=== PATIENT | female | born 1960 | race Two or more races ===

== ENCOUNTER 2018-03-21 08:00 | Inpatient (IN) | payer MEDICARE, OTHER ==
[2018-03-21] MEDS ORDERED: BUPIVACAINE HCL/PF 0.25% (2.5MG/ML) 10 ML VIAL ONE (10:52)
[2018-03-21] MEDS ORDERED: MIDAZOLAM HCL 2 MG/2 ML SINGLE DOSE VIAL ONE (11:00)
[2018-03-21] MEDS ORDERED: DEXAMETHASONE SOD PHOSPHATE 4 MG/1 ML VIAL ONE ×2 (11:23→12:53)
[2018-03-21] MEDS ORDERED: LIDOCAINE HCL/PF 2% SDV 5ML VIAL ONE (11:23)
[2018-03-21] MEDS ORDERED: PROPOFOL 20 ML ONE (11:24)
[2018-03-21] MEDS ORDERED: ROCURONIUM BROMIDE 50 MG/5 ML VIAL ONE (11:24)
[2018-03-21] MEDS ORDERED: ceFAZolin SODIUM 1 GM VIAL ONE (11:33)
[2018-03-21] MEDS ORDERED: ceFAZolin SODIUM 1 GM VIAL IVPB ONE (11:34)
[2018-03-21] MEDS ORDERED: GLYCOPYRROLATE 0.2 MG/1 ML VIAL ONE (13:45)
[2018-03-21] MEDS ORDERED: NEOSTIGMINE METHYLSULFATE 0.5 MG/ML - 10 ML MDV ONE (13:45)
[2018-03-21] MEDS ORDERED: BUPIVACAINE HCL/PF 0.25% (2.5MG/ML) 10 ML VIAL IJ ONE (13:45)
[2018-03-21] MEDS ORDERED: ACETAMINOPHEN INJECTION 100 ML IVPB ONE (13:56)
[2018-03-21] MEDS ORDERED: FAMOTIDINE 20 MG/50 ML IVPB 20 MG/50 ML MG IVPB ONE (13:57)
[2018-03-21] MEDS ORDERED: METOCLOPRAMIDE HCL INJECTION 10 MG/2 ML VIAL ONE (13:57)
[2018-03-21] MEDS ORDERED: ONDANSETRON 4 MG/2 ML VIAL ONE (13:57)
[2018-03-21] MEDS ORDERED: MIDAZOLAM HCL 2 MG/2 ML SINGLE DOSE VIAL IVPUSH ONE (14:14)
--- NOTE | 2018-03-21 14:34 | OP ---
Operative Note - Note: Operative Date: 03/21/18 Pre-Operative Diagnosis: Morbid obesity due to excess calories Operation: Laproscopic sleeve gastrectomy, liver biopsy, and EGD Post-Operative Diagnosis: Same as Pre-op Surgeon: Chucho Rosario School Based Therapist: Sandoval Valles Anesthesiologist/VAULT KEEPER: Dewayne Boateng Anesthesia: General Estimated Blood Loss (mls): 150 Operative Report Dictated: Yes
[2018-03-21] MEDS: METOCLOPRAMIDE HCL INJECTION 10 MG/2 ML VIAL IVPUSH SCH ×2 (14:35→21:00)
[2018-03-21] MEDS: ACETAMINOPHEN 1000 MG/100 ML VIAL (NON FORMULARY) IVPB SCH ×2 (14:36→21:00)
[2018-03-21] MEDS: ONDANSETRON 4 MG/2 ML VIAL IVPUSH SCH ×3 (14:36→22:45)
[2018-03-21] MEDS ORDERED: FAMOTIDINE 20 MG PREMIXED IVPB IVPB ONE (14:37)
--- NOTE | 2018-03-21 14:38 | SURG ---
[facility] Publisher Note Magazine Publisher: Sandoval Valles PA-C Date of Service: 03/21/18 Diagnosis: morbid obesity due to excess calories Procedure: Laproscopic sleeve gastrectomy, liver biopsy, and EGD I was present for the entirety of the operative procedure. For further detail, please refer to operative report.
--- NOTE | 2018-03-21 14:38 | HP ---
Admitting History and Physical - Admission Chief Complaint: MORBID OBESITY History Source: Patient Limitations to Obtaining History: No Limitations - Past Medical History Pulmonary: Yes: Sleep Apnea ...LMP: 03/20/16 ...: No - Past Surgical History Additional Past Surgical History: lap bans Lap band removal - Smoking History Smoking history: Former smoker Have you smoked in the past 12 months: Yes If you are a former smoker, when did you quit?: 2011 - Alcohol/Substance Use Hx Alcohol Use: Yes (SOCIAL) Home Medications - Allergies Allergies/Adverse Reactions: Allergies Allergy/AdvReac Type Severity Reaction Status Date / Time No Known Drug Allergies Allergy Verified 12/11/14 19:34 - Home Medications Home Medications: Ambulatory Orders Loratadine [Claritin] 10 mg PO DAILY 03/20/18 Trazodone HCl 150 mg PO HS 03/20/18 Family Disease History - Family Disease History Family History: Unremarkable Review of Systems - Review of Systems Constitutional: denies: Chills, Fever HENT: reports: No Symptoms Neck: reports: No Symptoms Cardiovascular: reports: No Symptoms Respiratory: reports: No Symptoms Gastrointestinal: denies: Abdominal Pain Neurological: reports: No Symptoms Pain Intensity: 0 Physical Examination Vital Signs: Vital Signs Temperature 98.0 F 03/21/18 09:13 Pulse Rate 60 03/21/18 09:13 Respiratory Rate 16 03/21/18 09:13 Blood Pressure 103/60 03/21/18 09:13 O2 Sat by Pulse Oximetry (%) 94 L 03/21/18 09:02 Constitutional: Yes: No Distress HENT: Yes: WNL Neck: Yes: WNL Cardiovascular: Yes: WNL Respiratory: Yes: WNL Gastrointestinal: Yes: Soft, Abdomen, Obese Neurological: Yes: Alert, Oriented Problem List - Problems (1) BMI 39.0-39.9,adult Code(s): Z68.39 - BODY MASS INDEX (BMI) 39.0-39.9, ADULT (2) Morbid obesity due to excess calories Code(s): E66.01 - MORBID (SEVERE) OBESITY DUE TO EXCESS CALORIES (3) Hepatomegaly Code(s): R16.0 - HEPATOMEGALY, NOT ELSEWHERE CLASSIFIED (4) Sleep apnea Code(s): G47.30 - SLEEP APNEA, UNSPECIFIED Qualifiers: Sleep apnea type: unspecified type Qualified Code(s): G47.30 - Sleep apnea , unspecified Assessment/Plan Laparoscopic possible open vertical sleeve gastrectomy possible liver biopsy, EGD
[2018-03-21] MEDS ORDERED: ACETAMINOPHEN 1000 MG/100 ML VIAL (NON FORMULARY) IVPB SCH (14:45)
[2018-03-21] MEDS ORDERED: ONDANSETRON 4 MG/2 ML VIAL IVPUSH SCH (14:45)
[2018-03-21] MEDS ORDERED: METOCLOPRAMIDE HCL INJECTION 10 MG/2 ML VIAL IVPUSH SCH (14:45)
[2018-03-21] MEDS ORDERED: SODIUM CHLORIDE 1,000 ML IV SCH (14:45)
[2018-03-21] MEDS ORDERED: LABETALOL HCL 5 MG/1 ML (100MG/20 ML VIAL) ONE (14:55)
[2018-03-21] MEDS ORDERED: LABETALOL HCL 5 MG/1 ML (100MG/20 ML VIAL) IVPUSH ONE ×2 (14:55→17:30)
[2018-03-21 15:10] LABS: HEMATOCRIT 41.9 % (32.4-45.2); HEMOGLOBIN 13.6 GM/dL (10.7-15.3); MCH 29.5 pg (25.7-33.7); MCHC 32.5 g/dl (32.0-36.0); MEAN CELL VOLUME 90.6 fl (80-96); MEAN PLT VOLUME 8.6 fl (7.5-11.1); PLATELET COUNT 303 K/MM3 (134-434); RBC 4.63 M/mm3 (3.60-5.2); RDW 14.2 % (11.6-15.6); WHITE BLOOD COUNT 12.1 K/mm3 (4.0-10.0)
[2018-03-21] MEDS: SODIUM CHLORIDE 1,000 ML IV SCH (15:15)
--- NOTE | 2018-03-21 15:31 | SPEC ---
DATE OF OPERATION: 03/21/2018 SURGEON: Chucho Roasrio M.D. RV TECHNICIAN: Bird Palomino PREOPERATIVE DIAGNOSIS: 1. Morbid obesity. 2. Body mass index of 39.1. 3. Sleep apnea. POSTOPERATIVE DIAGNOSIS: 1. Morbid obesity. 2. Body mass index of 39.1. 3. Sleep apnea. 4. Hepatomegaly. PROCEDURES: 1. Laparoscopic vertical sleeve gastrectomy. 2. Laparoscopic wedge liver biopsy. 3. Upper endoscopy/EGD SPECIMENS: 1. Greater curvature of the stomach. 2. Liver biopsy. BLOOD LOSS: 150 mL. DRAINS: None. ANESTHESIA: GET REASON FOR PROCEDURE: This is a 57-year-old female who presented for weight loss options. After describing different options, she decided to proceed with laparoscopic, possible open vertical sleeve gastrectomy, possible liver biopsy and upper endoscopy. The risks and benefits of the procedure were explained. RISKS AND BENEFITS: After describing the different options for weight loss management, the patient decided to proceed with a laparoscopic, possible open vertical sleeve gastrectomy. The patient was seen by the respective subspecialties and cleared for surgery. The risks and benefits of the procedure were explained. These included bleeding, infection, hernia, CA, DVT, PE, injury to surrounding structures including the liver, colon, bowel, spleen, esophagus, vessel injury, nerve injury, weight regain, gastric leak, staple line leak, sleeve leak, obstruction, vitamin deficiency, hair loss and as some of the possible complications. The patient understood and signed informed consent. DESCRIPTION OF PROCEDURE: The patient was placed supine on the operating room table. The patient underwent general endotracheal intubation. The arms were brought out at 90 degrees and secured. A footboard was placed and the legs were secured laterally with padding. The abdomen was prepped and draped in the usual sterile fashion. A timeout was performed. An incision was made in the left upper quadrant and a Veress needle inserted. Pneumoperitoneum was established. Subsequently, the Veress needle was removed and a 5-mm trocar was placed under direct visualization with the laparoscope. The laparoscopic camera was then inserted and inspection of the abdominal cavity was performed. An incision was then made in the supraumbilical area and a 15-mm trocar was placed under direct visualization. A 5-mm trocar was then placed in the right upper quadrant and a 5-mm trocar was placed below the left subcostal margin. A stab wound was made in the subxiphoid area and a Mariah clamp inserted and removed to dilate the tract. A Randolph liver retractor was inserted. The post was secured at the bedside by the nursing staff. The patient was placed in steep reverse Trendelenburg position and the Randolph liver retractor was used to secure the liver towards the anterior abdominal wall. The pylorus was identified and 6 cm proximal to it, the lesser sac was entered using the LigaSure device. All lateral attachments to the greater curvature of the stomach, including the short gastric vessels, were ligated using the LigaSure device toward the gastrosplenic and gastrophrenic ligaments. Once this was done in its entirety, it was confirmed that all tubes within the nasal or oropharyngeal cavity, including a temperature probe, was removed by Anesthesia. The bougie was then inserted by Anesthesia. Transection of the stomach was then begun staying adjacent to the bougie but away from the angularis. Transection of the stomach was performed near the portion of the stomach where the lesser sac was entered. Two laparoscopic Endo-DEDRA black bridget were used at this location. Laparoscopic Endo DEDRA purple staple loads were then used for the remainder of the transection until the greater curvature of the stomach was fully transected. This was done staying close to the bougie. Care was taken to stay away from the angle of His cephalad. The staple line was then inspected. Hemostasis was identified. A leak test was then performed. It was clamped distally to the staple line. Irrigation solution was placed in the left upper quadrant and air was insufflated by Anesthesia into the sleeve. No leaks were identified. No obstruction was identified. This was done through the entirety of the staple line. In addition, an upper endoscopy was performed. The endoscope was placed into the patients mouth and the entirety of the esophagus, GE junction, gastric pouch and staple line were inspected. No obstruction or leak was noted. The stomach was suctioned and the endoscope removed fully intact. At this point, the irrigation solution was suctioned and again, hemostasis was noted. A wedge liver biopsy was then performed. The left lobe of the liver was identified and a portion of the edge was grasped. Using electrocautery, a wedge of the liver was excised. This was removed and sent off the field as specimen. Hemostasis at the site of the wedge liver biopsy was attained using electrocautery. The 15-mm supraumbilical trocar was then removed and the greater curvature specimen removed from the site using a sponge stick collins. The specimen was inspected and a Veress needle inserted. The specimen insufflated adequately and no leak was identified. The staple line was noted to be intact. A Manohar-Delta device was then used to close the fascia with a 0 Vicryl suture at the site. Again, hemostasis was noted. The Randolph liver retractor was then removed under direct visualization. Pneumoperitoneum was desufflated and the fascial sutures were secured. Hemostasis was noted at all incision sites and Marcaine was injected at all incision sites. All incision sites were closed using 4-0 Biosyn. Sterile dressings were applied. The patient tolerated the procedure well and was transferred to the recovery room in stable condition. The patient was transferred to telemetry for further monitoring. In addition, to aid with hemostasis because of oozing at the suture line, Endo Stitch was used to run the entirety of the staple line to control oozing and to complete hemostasis. At the end, hemostasis was completely noted, and the area was irrigated, suctioned until dry. Patient tolerated procedure well, transferred to recovery room in stable condition. Michaelle [id number] MTDD
[2018-03-21] MEDS ORDERED: morphine SULFATE 4 MG/ML VIAL IVPUSH PRN (15:36)
[2018-03-21 15:39] LABS: ALBUMIN 3.6 g/dl (3.4-5.0); ANION GAP 7 MMOL/L (8-16); BILIRUBIN,TOTAL 0.4 mg/dL (0.2-1.0); BLOOD UREA NITROGEN 12 mg/dL (7-18); CALCIUM 8.5 mg/dL (8.5-10.1); CHLORIDE 104 mmol/L (98-107); CO2 29 mmol/L (21-32); GLUCOSE,RANDOM 181 mg/dL (74-106); POTASSIUM 4.2 mmol/L (3.5-5.1); SGOT/AST 60 U/L (15-37); SGPT/ALT 49 U/L (12-78); SODIUM 140 mmol/L (136-145); TOT PROT 7.1 g/dl (6.4-8.2)
[2018-03-21 15:40] LABS: ALK PHOS 94 U/L (45-117)
[2018-03-21] MEDS ORDERED: hydrALAZINE HCL 20 MG/ML VIAL ONE (15:47)
[2018-03-21] MEDS ORDERED: hydrALAZINE HCL 20 MG/ML VIAL IVPUSH ONE (16:00)
[2018-03-21] MEDS ORDERED: HYDROmorphone *PCA* 10MG/50ML DISP.SYRIN PCA SCH (16:15)
[2018-03-21] MEDS: HYDROmorphone *PCA* 10MG/50ML DISP.SYRIN PCA SCH (18:30)
[2018-03-21] MEDS ORDERED: FAMOTIDINE 20 MG/50 ML IVPB 50 ML IVPB SCH (22:00)
[2018-03-21] MEDS ORDERED: ENOXAPARIN NA (PORCINE) 40 MG/0.4 ML DISP.SYRIN SQ SCH (22:00)
[2018-03-21] MEDS: ENOXAPARIN NA (PORCINE) 40 MG/0.4 ML DISP.SYRIN SQ SCH (22:45)
[2018-03-21] MEDS: FAMOTIDINE 20 MG/50 ML IVPB 20 MG/50 ML MG IVPB SCH (22:45)
[2018-03-22] MEDS: METOCLOPRAMIDE HCL INJECTION 10 MG/2 ML VIAL IVPUSH SCH ×4 (02:53→21:00)
[2018-03-22] MEDS: ACETAMINOPHEN 1000 MG/100 ML VIAL (NON FORMULARY) IVPB SCH ×2 (02:53→10:24)
[2018-03-22] MEDS: ONDANSETRON 4 MG/2 ML VIAL IVPUSH SCH ×6 (02:53→23:00)
[2018-03-22 06:41] LABS: HEMATOCRIT 35.5 % (32.4-45.2); HEMOGLOBIN 11.6 GM/dL (10.7-15.3); MCH 29.4 pg (25.7-33.7); MCHC 32.5 g/dl (32.0-36.0); MEAN CELL VOLUME 90.4 fl (80-96); MEAN PLT VOLUME 8.1 fl (7.5-11.1); PLATELET COUNT 221 K/MM3 (134-434); RBC 3.93 M/mm3 (3.60-5.2); RDW 14.3 % (11.6-15.6); WHITE BLOOD COUNT 10.7 K/mm3 (4.0-10.0)
[2018-03-22 07:16] LABS: CHLORIDE 107 mmol/L (98-107); POTASSIUM 4.3 mmol/L (3.5-5.1); SODIUM 141 mmol/L (136-145)
[2018-03-22 07:22] LABS: ALBUMIN 3.1 g/dl (3.4-5.0); ALK PHOS 75 U/L (45-117); ANION GAP 10 MMOL/L (8-16); BILIRUBIN,TOTAL 0.4 mg/dL (0.2-1.0); BLOOD UREA NITROGEN 9 mg/dL (7-18); CALCIUM 8.1 mg/dL (8.5-10.1); CO2 24 mmol/L (21-32); CREATININE 0.7 mg/dL (0.55-1.02); GLUCOSE,RANDOM 100 mg/dL (74-106); SGOT/AST 61 U/L (15-37); SGPT/ALT 47 U/L (12-78); TOT PROT 6.1 g/dl (6.4-8.2)
--- NOTE | 2018-03-22 09:43 | PN ---
Progress Note (short form) - Note Progress Note: 57yo F s/p Lap sleeve gastrectomy, POD #1. Pt seen at bedside states abd pain is much improved since getting AUTO TRANSMISSION MECHANIC. Denies n/v, fever, chills. Pt urinating and ambulating well. Last Vital Signs Temp Pulse Resp BP Pulse Ox 98.7 F 75 18 143/76 96 03/22/18 05:00 03/22/18 05:00 03/22/18 05:00 03/22/18 05:00 03/21/18 21:00 CBC, BMP 03/22/18 05:30 03/22/18 05:30 PE: Gen: A&O x3 Resp: breathing comfortably Abd: soft, nondistended, mild tenderness. Incisions are clean with no erythema or discharge. Ext: no edema <Sandoval Valles - Last Filed: 03/22/18 09:37> - Note Progress Note: Agree POD 1 Pain controlled AVSS Abd soft UGI: no leak/obstruction Clears Discharge planning <Chucho Rosario - Last Filed: 03/22/18 18:42> Problem List - Problems (1) Morbid obesity due to excess calories Assessment/Plan: Plan - follow up upper GI, if no leak will advance diet. -OOB/ambulate -wean off AUTO TRANSMISSION MECHANIC -DVT/GI ppx -incentive spirometry Code(s): E66.01 - MORBID (SEVERE) OBESITY DUE TO EXCESS CALORIES <Sandoval Valles - Last Filed: 03/22/18 09:37> - Problems (1) BMI 39.0-39.9,adult Code(s): Z68.39 - BODY MASS INDEX (BMI) 39.0-39.9, ADULT (2) Morbid obesity due to excess calories Code(s): E66.01 - MORBID (SEVERE) OBESITY DUE TO EXCESS CALORIES (3) Hepatomegaly Code(s): R16.0 - HEPATOMEGALY, NOT ELSEWHERE CLASSIFIED (4) Sleep apnea Code(s): G47.30 - SLEEP APNEA, UNSPECIFIED Qualifiers: Sleep apnea type: unspecified type Qualified Code(s): G47.30 - Sleep apnea , unspecified <Chucho Rosario - Last Filed: 03/22/18 18:42>
[2018-03-22] MEDS: ENOXAPARIN NA (PORCINE) 40 MG/0.4 ML DISP.SYRIN SQ SCH ×2 (10:23→21:00)
[2018-03-22] MEDS: FAMOTIDINE 20 MG/50 ML IVPB 20 MG/50 ML MG IVPB SCH ×2 (10:24→21:01)
[2018-03-22] MEDS ORDERED: SODIUM CHLORIDE 1,000 ML IV SCH ×2 (12:15→18:45)
--- NOTE | 2018-03-22 12:26 | PN ---
Progress Note (short form) - Note Progress Note: Anesthesia POD#1 S/P Lap Vertical sleeve Gastrectomy under GA and IV HAT MEASURER VSS,no N/V,pain is controlled by the HAT MEASURER. Not on orals yet. A/P Continue HAT MEASURER until she tolerate oral food. Nona Mir MD.
[2018-03-22] MEDS: SODIUM CHLORIDE 1,000 ML IV SCH (17:33)
[2018-03-22] MEDS ORDERED: PT OWN MED DRAWER 7, Y5N ONE (18:11)
[2018-03-22] MEDS: HYDROmorphone *PCA* 10MG/50ML DISP.SYRIN PCA SCH (18:39)
[2018-03-22] MEDS ORDERED: oxyCODONE HCL 5 MG TABLET PO PRN (18:40)
[2018-03-22] MEDS: oxyCODONE HCL 5 MG TABLET PO PRN (21:01)
[2018-03-23] MEDS: oxyCODONE HCL 5 MG TABLET PO PRN ×3 (01:10→17:16)
[2018-03-23] MEDS: METOCLOPRAMIDE HCL INJECTION 10 MG/2 ML VIAL IVPUSH SCH ×3 (02:07→14:28)
[2018-03-23] MEDS: ONDANSETRON 4 MG/2 ML VIAL IVPUSH SCH ×4 (03:15→14:28)
--- NOTE | 2018-03-23 08:05 | PN ---
Progress Note (short form) - Note Progress Note: POD #2 - s/p laparoscopic vertical sleeve gastrectomy. VSS. Pt. doing well, resting comfortably in bed. C/o some heartburn. Good pain control - DIRECTOR GEOPHYSICAL LABORATORY discontinued earlier. Pain management as per surgery.
[2018-03-23] MEDS ORDERED: PANTOPRAZOLE SODIUM 40 MG VIAL IVPUSH ONE (09:05)
[2018-03-23] MEDS ORDERED: ONDANSETRON 4 MG/2 ML VIAL IVPUSH ONE (09:06)
[2018-03-23] MEDS: FAMOTIDINE 20 MG/50 ML IVPB 20 MG/50 ML MG IVPB SCH (09:58)
[2018-03-23] MEDS: ENOXAPARIN NA (PORCINE) 40 MG/0.4 ML DISP.SYRIN SQ SCH (10:00)
--- NOTE | 2018-03-23 13:14 | PN ---
Progress Note (short form) - Note Progress Note: 57yo F s/p Lap gastric sleeve POD #2. Pt appears to be doing well. States that she is tolerating PO and is ambulating well. Pt complaining of some reflux , but denies n/v. No fever, chills. Last Vital Signs Temp Pulse Resp BP Pulse Ox 98.8 F 76 18 158/88 96 03/23/18 09:00 03/23/18 10:11 03/23/18 10:11 03/23/18 10:11 03/23/18 09:00 CBC, BMP 03/22/18 05:30 03/22/18 05:30 PE: Gen: A&O x3 Resp: breathing comfortably Abd: soft, nondistended, mild tenderness, incisions are clean with no erythema or discharge Ext: no edema Problem List - Problems (1) Morbid obesity due to excess calories Assessment/Plan: Plan -give protonix and zofran for reflux -pt appears to be improved will plan for discharge home with follow up with Dr. Rosario next week. Case discussed with Dr. Rosario who agrees. Code(s): E66.01 - MORBID (SEVERE) OBESITY DUE TO EXCESS CALORIES
[2018-03-23 14:20] VITALS: BMI 39.8
[2018-03-23 15:21] VITALS: PULSE 77
--- NOTE | 2018-03-23 16:16 | PATH ---
Surgical Pathology Report Patient Name: BABAK KLINE [facility]. Rec. #: [id number] /Age/Gender: 1960 (Age: 57) / F Account: [id number] Location: 4 W TELEMETRY U Taken: 03/21/2018 Received: 03/22/2018 Reported: 03/23/2018 Physicians: Chucho Rosario M.D. Specimen(s) Received A: GREATER CURVATURE STOMACH B: LIVER BIOPSY Clinical History Morbid obesity Final Diagnosis A. STOMACH, GREATER CURVATURE, LAPAROSCOPIC VERTICAL SLEEVE GASTRECTOMY: PORTION OF STOMACH WITH MILD CHRONIC GASTRITIS. IMMUNOHISTOCHEMICAL STAIN FOR H. PYLORI IS NEGATIVE. B. LIVER, BIOPSY: LIVER PARENCHYMA WITH MILD STEATOSIS (~10%). NO INCREASE IN IRON AND FIBROSIS ON PERFORMED SPECIAL STAINS (IRON AND TRICHROME). Electronically Signed Yumiko Thurman M.D. Gross Description A. Received in formalin, labeled "greater curvature of stomach," is a 82 gram, 20.0 x 2.8 x 1.5 cm. portion of stomach with a stapled margin of resection. The serosa is pinto-anderson with minimal attached fat. The mucosa is pinto-pink with normal folds. No mucosal masses are identified. Butcher'S Assistant sections are submitted in one cassette. B. Received in formalin labeled "liver biopsy," is a 2.5 x 1.4 x 1.0 cm portion of soft tissue, consistent with a liver biopsy. The specimen is sectioned and sales representative public utilities sections are submitted in one cassette. DL/03/22/2018 saudi/03/22/2018
--- NOTE | 2018-03-23 16:29 | CON.CARD ---
Consult Consult Specialty:: Cardiology Referred by:: Dr. Rosario Reason for Consultation:: Hypertension - History of Present Illness Chief Complaint: Elevated BP post op. History of Present Illness: 57 year old obese woman with a PMHx of obstructive sleep apnea and hepatomegaly admitted 03/21/2018 for elective bariatric surgery. She underwent unremarkbale sleeve laparoscopic gastrectomy and liver biopsy 03/21/2018. She was found to have elevated BP post op. The patient has no history of HTN, CAD or CHF. She denies chest pain, SOB, palpitation, edema, orthopnea or PND. - History Source History Provided By: Patient Limitations to Obtaining History: No Limitations - Past Medical History Pulmonary: Yes: Sleep Apnea ...LMP: 03/20/16 ...: No - Alcohol/Substance Use Hx Alcohol Use: Yes (SOCIAL) - Smoking History Smoking history: Former smoker Have you smoked in the past 12 months: Yes If you are a former smoker, when did you quit?: 2011 Home Medications - Allergies Allergies/Adverse Reactions: Allergies Allergy/AdvReac Type Severity Reaction Status Date / Time No Known Drug Allergies Allergy Verified 12/11/14 19:34 - Home Medications Home Medications: Ambulatory Orders Loratadine [Claritin] 10 mg PO DAILY 03/20/18 Trazodone HCl 150 mg PO HS 03/20/18 Famotidine [Pepcid] 20 mg PO BID #60 tablet 03/21/18 Oxycodone HCl/Acetaminophen [Percocet 5-325 mg Tablet] 1 - 2 tab PO Q6H #28 tab MDD 4 03/21/18 Review of Systems - Review of Systems Constitutional: reports: No Symptoms Eyes: reports: No Symptoms HENT: reports: No Symptoms Neck: reports: No Symptoms Cardiovascular: reports: No Symptoms Respiratory: reports: No Symptoms Gastrointestinal: reports: Abdominal Pain Genitourinary: reports: No Symptoms Breasts: reports: No Symptoms Reported Musculoskeletal: reports: No Symptoms Integumentary: reports: No Symptoms Endocrine: reports: No Symptoms Vital Signs: Vital Signs Temperature 98.6 F 03/23/18 14:00 Pulse Rate 77 03/23/18 14:00 Respiratory Rate 18 03/23/18 10:11 Blood Pressure 170/94 03/23/18 14:00 O2 Sat by Pulse Oximetry (%) 96 03/23/18 09:00 General: Well developed. Obese. No acute distress. Head: Normocephalic. Atraumatic, Eyes: PERRLA, EOMI. Sclerae anicteric. Conjunctivae clear. Neck: Supple. No JVD. No bruits. Heart: Normal S1, S2: Regularly regular rhythm and rate. No murmur. No gallop or rub. Lungs: Symmetrical air entry. Clear to auscultation. No crackle. No wheezing or rhonchi. Abdomen: Soft. Bowel sound positive. Mild tenderness. No masses. Extremities: No edema. No clubbing or cyanosis. PD 2+, equal bilaterally. Neuro: Intact, no focal findings. AAO X3. - Other Data Labs, Other Data: CBC, BMP 03/22/18 05:30 03/22/18 05:30 Assessment/Plan 57 year old obese woman with a PMHx of obstructive sleep apnea and hepatomegaly admitted 03/21/2018 for elective bariatric surgery. She underwent unremarkbale sleeve laparoscopic gastrectomy and liver biopsy 03/21/2018. She was found to have elevated BP post op. Moderate hypertension post op: start Nifedipine 30 mg daily, titrate up as needed. Out-patient cardiac follow up with Dr. Vargas for BP management. Her current BP should not prevent to delay her discharge. Please call us for reconsult as needed.
[2018-03-23] MEDS ORDERED: NIFEdipine E.R. 30 MG TABLET (FP) PO ONE (17:15)
[2018-03-23 18:41] VITALS: BP 147/94; TEMP 98.2
== END 2018-03-23 19:16 | disposition home or self-care (01) | DRG 621 ==
LOC: EDSTATUS 08:00 → JSAMEDAYSX 08:12 → J4W 17:05
PROVIDERS: ADMIT Surgery; ATTEND Surgery
PROC: 0DB64Z3 Excision of Stomach, Percutaneous Endoscopic Approach, Vertical (ICD-10-PCS; principal; 2018-03-21 10:00)
PROC: 0FB24ZX Excision of Left Lobe Liver, Percutaneous Endoscopic Approach, Diagnostic (ICD-10-PCS; 2018-03-21 10:00)
PROC: 0DJ08ZZ Inspection of Upper Intestinal Tract, Via Natural or Artificial Opening Endoscopic (ICD-10-PCS; 2018-03-21 10:00)
DX: E66.01 Morbid (severe) obesity due to excess calories (principal); Z68.39 Body mass index [BMI] 39.0-39.9, adult; G47.30 Sleep apnea, unspecified; R16.0 Hepatomegaly, not elsewhere classified
CPT/HCPCS: 36415; 74241-TC-FY; 80053; 85027; 86850; 86900; 86901; 88307-TC; 94010; 94760; J0131; J7030

== ENCOUNTER 2020-10-27 09:01 | Emergency (ER) | payer MEDICARE, OTHER ==
[2020-10-27 09:26] VITALS: TEMP 97.8; BMI 28.3
[2020-10-27] MEDS ORDERED: SODIUM CHLORIDE 0.9% 1000 ML INFUS.BAG IV ONE (09:47)
[2020-10-27] MEDS ORDERED: ACETAMINOPHEN 1000 MG/100 ML VIAL (NON FORMULARY) IVPB ONE (09:48)
[2020-10-27] MEDS ORDERED: FAMOTIDINE 20 MG/50 ML IVPB 20 MG/50 ML MG IVPB ONE ×2 (10:11→10:17)
[2020-10-27] MEDS ORDERED: ACETAMINOPHEN INJECTION 100 ML IVPB ONE (10:17)
[2020-10-27 10:24] LABS: BASO % 0.3 % (0-2.0); EOS % 3.7 % (0-4.5); HEMATOCRIT 36.4 % (32.4-45.2); LYMPH % 10.3 % (8-40); MCH 30.2 pg (25.7-33.7); MCHC 32.9 g/dl (32.0-36.0); MEAN CELL VOLUME 91.6 fl (80-96); MEAN PLT VOLUME 8.1 fl (7.5-11.1); MONO % 5.7 % (3.8-10.2); PLATELET COUNT 235 K/MM3 (134-434); RBC 3.98 M/mm3 (3.60-5.2); RDW 14.8 % (11.6-15.6); WHITE BLOOD COUNT 9.9 K/mm3 (4.0-10.0)
[2020-10-27 10:32] LABS: INR 0.94 (0.83-1.09); PROTHROMBIN TIME (PATIENT) 11.4 SEC (9.7-13.0)
[2020-10-27 10:34] LABS: ACTIVATED PTT 33.5 SECONDS (25.2-36.5)
[2020-10-27 10:45] LABS: CALCIUM 9.3 mg/dL (8.5-10.1)
[2020-10-27 10:46] LABS: ALBUMIN 3.7 g/dl (3.4-5.0); BLOOD UREA NITROGEN 10.4 mg/dL (7-18)
[2020-10-27 10:49] LABS: CREATININE 0.7 mg/dL (0.55-1.3)
[2020-10-27 10:50] LABS: BILIRUBIN,TOTAL 0.6 mg/dL (0.2-1)
[2020-10-27 13:14] VITALS: BP 137/60; PULSE 61
== END 2020-10-27 12:53 | disposition home or self-care (01) ==
LOC: JER 09:01
PROC: 3E0333Z Introduction of Anti-inflammatory into Peripheral Vein, Percutaneous Approach (ICD-10-PCS; principal; 2020-10-27)
PROC: 3E033GC Introduction of Other Therapeutic Substance into Peripheral Vein, Percutaneous Approach (ICD-10-PCS; 2020-10-27)
DX: R10.84 Generalized abdominal pain (principal)
CPT/HCPCS: 36415; 74177-TC; 80053; 82272; 83690; 85025; 85610; 85730; 86850; 86900; 86901; 99285-25; J0131; Q9967

== ENCOUNTER 2021-12-11 08:18 | Day surgery (SDC) | payer OTHER ==
[2021-12-04 13:36] VITALS: BMI 29.2
[2021-12-11] MEDS ORDERED: PROPOFOL 20 ML ONE (09:12)
[2021-12-11] MEDS ORDERED: MIDAZOLAM HCL 2 MG/2 ML SINGLE DOSE VIAL ONE (09:12)
[2021-12-11] MEDS ORDERED: LIDOCAINE HCL/PF 2% SDV 5ML VIAL ONE (09:13)
[2021-12-11] MEDS ORDERED: GLYCOPYRROLATE 0.2 MG/1 ML VIAL ONE (09:13)
[2021-12-11] MEDS ORDERED: ceFAZolin SODIUM 1 GM VIAL ONE (09:13)
[2021-12-11] MEDS ORDERED: SODIUM CHLORIDE 0.9% P/F 10 ML VIAL IJ ONE ×2 (09:13→09:14)
[2021-12-11] MEDS ORDERED: KETOROLAC TROMETHAMINE 30 MG/1 ML VIAL ONE (09:32)
[2021-12-11] MEDS ORDERED: ONDANSETRON 4 MG/2 ML VIAL ONE (09:32)
[2021-12-11] MEDS ORDERED: BUPIVACAINE HCL/EPINEPHRINE/PF 30 ML VIAL IJ ONE (09:32)
[2021-12-11] MEDS ORDERED: DEXAMETHASONE SOD PHOSPHATE 4 MG/1 ML VIAL ONE (09:32)
[2021-12-11] MEDS ORDERED: oxyCODONE HCL 5 MG TABLET PO PRN (10:15)
[2021-12-11] MEDS ORDERED: LACTATED RINGERS SOLUTION 1,000 ML IV SCH (10:15)
[2021-12-11] MEDS ORDERED: PROMETHAZINE HCL 25 MG/1 ML VIAL IVPUSH PRN (10:15)
[2021-12-11] MEDS ORDERED: ONDANSETRON 4 MG/2 ML VIAL IVPUSH PRN (10:15)
[2021-12-11] MEDS ORDERED: FENTANYL CITRATE/PF 50 MCG/ML VIAL ONE (10:31)
[2021-12-11] MEDS ORDERED: oxyCODONE HCL 5 MG TABLET ONE (11:43)
[2021-12-11 13:16] VITALS: TEMP 97.8
[2021-12-11 13:45] VITALS: BP 134/65; PULSE 77
== END 2021-12-11 11:45 | disposition home or self-care (01) ==
LOC: FASU 08:18
PROVIDERS: ATTEND Orthopaedic Surgery
PROC: 0SBD4ZZ Excision of Left Knee Joint, Percutaneous Endoscopic Approach (ICD-10-PCS; principal; 2021-12-11 09:35)
DX: M22.42 Chondromalacia patellae, left knee (principal); M94.262 Chondromalacia, left knee; M65.862 Other synovitis and tenosynovitis, left lower leg
CPT/HCPCS: 94760

== ENCOUNTER 2022-07-31 11:40 | Inpatient (IN) | payer OTHER ==
[2022-07-31] MEDS ORDERED: morphine SULFATE 4 MG/ML VIAL IVPUSH ONE ×2 (12:21→16:13)
[2022-07-31] MEDS ORDERED: morphine SULFATE 4 MG/ML VIAL ONE ×2 (12:34→16:17)
[2022-07-31] MEDS ORDERED: LACTATED RINGERS SOLUTION 1000 ML INFUS.BAG IV ONE ×2 (12:49→12:52)
[2022-07-31] MEDS ORDERED: ONDANSETRON 4 MG/2 ML VIAL IVPUSH ONE (12:51)
[2022-07-31 12:57] LABS: HEMATOCRIT 33.9 % (32.4-45.2); MCH 27.6 pg (25.7-33.7); MCHC 32.5 g/dl (32.0-36.0); MEAN PLT VOLUME 7.9 fl (7.5-11.1); PLATELET COUNT 245 10^3/uL (134-434); RDW 15.4 % (11.6-15.6); WHITE BLOOD COUNT 12.7 K/mm3 (4.0-10.0)
[2022-07-31] MEDS ORDERED: ONDANSETRON 4 MG/2 ML VIAL ONE (13:14)
[2022-07-31 13:21] LABS: CALCIUM 8.5 mg/dL (8.5-10.1)
[2022-07-31 13:22] LABS: ALBUMIN 2.8 g/dl (3.4-5.0); BLOOD UREA NITROGEN 7.5 mg/dL (7-18)
[2022-07-31 13:25] LABS: CREATININE 0.6 mg/dL (0.55-1.3)
[2022-07-31 13:27] LABS: BILIRUBIN,TOTAL 0.9 mg/dL (0.2-1); TOT PROT 6.3 g/dl (6.4-8.2)
[2022-07-31 13:45] LABS: INR 1.03 (0.83-1.09); PROTHROMBIN TIME (PATIENT) 11.8 SEC (9.7-13.0)
[2022-07-31] MEDS ORDERED: PIPERACILLIN/TAZOB 4.5 GM 4.5 GM in DEXTROSE 5%-WATER 100 ML IVPB ONE (16:58)
[2022-07-31] MEDS ORDERED: LACTATED RINGERS SOLUTION 1,000 ML/1,000 ML INFUS.BAG IV SCH (17:30)
[2022-07-31 20:10] LABS: EPI CELLS 4 /uL (0-25.1); HYALINE CASTS 0 /uL (0-3.1); PH,URINE 7.5 (5.0-8.0); URINE APPEARANCE CLEAR; URINE BACTERIA 68 /uL (0-1359); URINE BILIRUBIN NEGATIVE (NEGATIVE); URINE COLOR YELLOW; URINE GLUCOSE (UA) NEGATIVE (NEGATIVE); URINE KETONE NEGATIVE (NEGATIVE); URINE LEUK ESTERASE NEGATIVE (NEGATIVE); URINE NITRITE NEGATIVE (NEGATIVE); URINE PROTEIN NEGATIVE (NEGATIVE); URINE RBC 36 /uL (0-23.9); URINE WBC 4 /uL (0-25.8)
[2022-07-31] MEDS ORDERED: ONDANSETRON 4 MG/2 ML VIAL IVPUSH PRN (20:55)
[2022-07-31] MEDS ORDERED: HYDROmorphone HCL CARPU-JECT 2 MG/1 ML DISP.SYRIN IVPUSH ONE (20:55)
[2022-07-31] MEDS ORDERED: HYDROmorphone HCl 2 MG/ML VIAL ONE (20:59)
[2022-07-31] MEDS ORDERED: POLYETHYLENE GLYCOL (HEALTHYLAX) 3350 17 GM PACKET PO PRN (21:32)
[2022-07-31] MEDS ORDERED: POLYETHYLENE GLYCOL (HEALTHYLAX) 3350 17 GM PACKET PO SCH (22:00)
[2022-07-31] MEDS: LACTATED RINGERS SOLUTION 1,000 ML/1,000 ML INFUS.BAG IV SCH (22:55)
[2022-08-01] MEDS: traZODone HCL 100 MG TABLET (FP) PO SCH ×2 (00:08→21:10)
[2022-08-01] MEDS: PIPERACILLIN/TAZOB 3.375 GM 3.375 GM in DEXTROSE 5%-WATER - 50 ML IVPB SCH ×3 (01:41→17:51)
[2022-08-01] MEDS ORDERED: KETOROLAC TROMETHAMINE 30 MG/1 ML VIAL IVPUSH ONE (03:46)
[2022-08-01] MEDS: morphine SULFATE 4 MG/ML VIAL IVPUSH PRN ×5 (03:55→22:50)
[2022-08-01 09:24] LABS: HEMATOCRIT 30.6 % (32.4-45.2); HEMOGLOBIN 9.9 GM/dL (10.7-15.3); MCH 27.6 pg (25.7-33.7); MCHC 32.3 g/dl (32.0-36.0); MEAN CELL VOLUME 85.5 fl (80-96); PLATELET COUNT 194 10^3/uL (134-434); RBC 3.57 M/mm3 (3.60-5.2); RDW 15.7 % (11.6-15.6)
[2022-08-01] MEDS: ENOXAPARIN NA (PORCINE) 40 MG/0.4 ML DISP.SYRIN SQ SCH (09:37)
[2022-08-01] MEDS: CITALOPRAM HYDROBROMIDE 20 MG TABLET PO SCH (09:37)
[2022-08-01 09:50] LABS: CALCIUM 8.1 mg/dL (8.5-10.1)
[2022-08-01 09:51] LABS: ALBUMIN 2.6 g/dl (3.4-5.0); BLOOD UREA NITROGEN 7.5 mg/dL (7-18)
[2022-08-01 09:53] LABS: CREATININE 0.7 mg/dL (0.55-1.3)
[2022-08-01 09:55] LABS: TOT PROT 5.6 g/dl (6.4-8.2)
[2022-08-01] MEDS ORDERED: DEXTROSE 5%-0.45% SALINE 1,000 ML IV SCH (11:00)
[2022-08-01] MEDS: KETOROLAC TROMETHAMINE 15 MG/ML VIAL IVPUSH PRN (11:58)
[2022-08-01] MEDS: LACTATED RINGERS SOLUTION 1,000 ML/1,000 ML INFUS.BAG IV SCH (16:08)
[2022-08-02] MEDS: LACTATED RINGERS SOLUTION 1,000 ML/1,000 ML INFUS.BAG IV SCH (01:07)
[2022-08-02] MEDS: KETOROLAC TROMETHAMINE 15 MG/ML VIAL IVPUSH PRN ×2 (01:14→08:03)
[2022-08-02] MEDS: PIPERACILLIN/TAZOB 3.375 GM 3.375 GM in DEXTROSE 5%-WATER - 50 ML IVPB SCH ×4 (02:21→18:12)
[2022-08-02] MEDS ORDERED: LACTATED RINGERS SOLUTION 1,000 ML/1,000 ML INFUS.BAG IV SCH (07:30)
[2022-08-02] MEDS: LORATADINE 10 MG TABLET PO SCH (09:18)
[2022-08-02] MEDS: ENOXAPARIN NA (PORCINE) 40 MG/0.4 ML DISP.SYRIN SQ SCH (09:18)
[2022-08-02] MEDS: CITALOPRAM HYDROBROMIDE 20 MG TABLET PO SCH (09:18)
[2022-08-02] MEDS ORDERED: PATIENT'S OWN MEDICATION (NON-FORMULARY) (Brimonidine Tartrate/Timolol [Brimonidine-Timolo OP SCH (10:00)
[2022-08-02 12:04] LABS: HEMATOCRIT 27.2 % (32.4-45.2); MCH 28.1 pg (25.7-33.7); MEAN CELL VOLUME 85.3 fl (80-96); MEAN PLT VOLUME 8.6 fl (7.5-11.1); PLATELET COUNT 202 10^3/uL (134-434); RBC 3.19 M/mm3 (3.60-5.2); RDW 15.3 % (11.6-15.6); WHITE BLOOD COUNT 10.4 K/mm3 (4.0-10.0)
[2022-08-02 12:21] LABS: ALBUMIN 2.2 g/dl (3.4-5.0); BLOOD UREA NITROGEN 9.2 mg/dL (7-18); CALCIUM 7.9 mg/dL (8.5-10.1); MAGNESIUM 1.9 mg/dL (1.8-2.4)
[2022-08-02 12:24] LABS: CREATININE 0.6 mg/dL (0.55-1.3); PHOSPHOROUS 3.3 mg/dL (2.5-4.9)
[2022-08-02 12:25] LABS: TOT PROT 5.3 g/dl (6.4-8.2)
[2022-08-02] MEDS: BRIMONIDINE TARTRATE 0.2% OPHTHALMIC 5 ML BOTTLE OU SCH ×2 (14:33→22:05)
[2022-08-02] MEDS: TIMOLOL 0.5% OPHTHALMIC SOL 5 ML BOTTLE OU SCH ×2 (14:34→22:05)
[2022-08-02] MEDS ORDERED: POTASSIUM CHLORIDE 40 MEQ in SODIUM CHLORIDE 1,000 ML IV SCH (17:30)
[2022-08-02] MEDS: morphine SULFATE 4 MG/ML VIAL IVPUSH PRN (18:11)
[2022-08-02] MEDS: traZODone HCL 100 MG TABLET (FP) PO SCH (22:04)
[2022-08-03] MEDS: PIPERACILLIN/TAZOB 3.375 GM 3.375 GM in DEXTROSE 5%-WATER - 50 ML IVPB SCH ×3 (01:13→17:43)
[2022-08-03 09:32] LABS: HEMATOCRIT 31.3 % (32.4-45.2); HEMOGLOBIN 10.1 GM/dL (10.7-15.3); MCH 27.9 pg (25.7-33.7); MCHC 32.2 g/dl (32.0-36.0); MEAN CELL VOLUME 86.5 fl (80-96); MEAN PLT VOLUME 8.6 fl (7.5-11.1); PLATELET COUNT 244 10^3/uL (134-434); RBC 3.61 M/mm3 (3.60-5.2); RDW 15.5 % (11.6-15.6); WHITE BLOOD COUNT 8.8 K/mm3 (4.0-10.0)
[2022-08-03 10:11] LABS: CREATININE 0.6 mg/dL (0.55-1.3)
[2022-08-03 10:12] LABS: BILIRUBIN,TOTAL 0.9 mg/dL (0.2-1); TOT PROT 6.2 g/dl (6.4-8.2)
[2022-08-03 10:15] LABS: ALBUMIN 2.5 g/dl (3.4-5.0); BLOOD UREA NITROGEN 9.8 mg/dL (7-18)
[2022-08-03 10:18] LABS: CALCIUM 8.4 mg/dL (8.5-10.1)
[2022-08-03 10:19] LABS: MAGNESIUM 2.2 mg/dL (1.8-2.4)
[2022-08-03] MEDS: CITALOPRAM HYDROBROMIDE 20 MG TABLET PO SCH (10:47)
[2022-08-03] MEDS: LORATADINE 10 MG TABLET PO SCH (10:47)
[2022-08-03] MEDS: ENOXAPARIN NA (PORCINE) 40 MG/0.4 ML DISP.SYRIN SQ SCH (10:47)
[2022-08-03] MEDS: TIMOLOL 0.5% OPHTHALMIC SOL 5 ML BOTTLE OU SCH ×2 (10:48→21:18)
[2022-08-03] MEDS: BRIMONIDINE TARTRATE 0.2% OPHTHALMIC 5 ML BOTTLE OU SCH ×2 (10:48→21:18)
[2022-08-03] MEDS: morphine SULFATE 4 MG/ML VIAL IVPUSH PRN (10:55)
[2022-08-03] MEDS: traZODone HCL 100 MG TABLET (FP) PO SCH (21:19)
[2022-08-03] MEDS: KETOROLAC TROMETHAMINE 15 MG/ML VIAL IVPUSH PRN (21:19)
[2022-08-04] MEDS: PIPERACILLIN/TAZOB 3.375 GM 3.375 GM in DEXTROSE 5%-WATER - 50 ML IVPB SCH ×3 (01:46→17:32)
[2022-08-04] MEDS ORDERED: DEXTROSE 5%-WATER - 1,000 ML IV SCH (08:15)
[2022-08-04] MEDS: BRIMONIDINE TARTRATE 0.2% OPHTHALMIC 5 ML BOTTLE OU SCH ×2 (09:28→21:40)
[2022-08-04] MEDS: CITALOPRAM HYDROBROMIDE 20 MG TABLET PO SCH (09:31)
[2022-08-04] MEDS: TIMOLOL 0.5% OPHTHALMIC SOL 5 ML BOTTLE OU SCH ×2 (09:32→21:40)
[2022-08-04] MEDS: LORATADINE 10 MG TABLET PO SCH (09:32)
[2022-08-04] MEDS: ENOXAPARIN NA (PORCINE) 40 MG/0.4 ML DISP.SYRIN SQ SCH (09:32)
[2022-08-04 09:59] LABS: HEMATOCRIT 29.5 % (32.4-45.2); HEMOGLOBIN 9.7 GM/dL (10.7-15.3); MCH 28.3 pg (25.7-33.7); MEAN CELL VOLUME 85.6 fl (80-96); MEAN PLT VOLUME 8.4 fl (7.5-11.1); PLATELET COUNT 251 10^3/uL (134-434); RBC 3.45 M/mm3 (3.60-5.2); RDW 15.5 % (11.6-15.6); WHITE BLOOD COUNT 6.2 K/mm3 (4.0-10.0)
[2022-08-04 10:26] LABS: CALCIUM 8.7 mg/dL (8.5-10.1)
[2022-08-04 10:28] LABS: ALBUMIN 2.4 g/dl (3.4-5.0)
[2022-08-04 10:32] LABS: BILIRUBIN,TOTAL 0.5 mg/dL (0.2-1); BLOOD UREA NITROGEN 5.6 mg/dL (7-18)
[2022-08-04 10:36] LABS: CREATININE 0.8 mg/dL (0.55-1.3)
[2022-08-04] MEDS: traZODone HCL 100 MG TABLET (FP) PO SCH (21:40)
[2022-08-05] MEDS: PIPERACILLIN/TAZOB 3.375 GM 3.375 GM in DEXTROSE 5%-WATER - 50 ML IVPB SCH ×3 (01:29→17:01)
[2022-08-05 09:42] LABS: HEMATOCRIT 28.2 % (32.4-45.2); HEMOGLOBIN 9.2 GM/dL (10.7-15.3); MCHC 32.8 g/dl (32.0-36.0); MEAN CELL VOLUME 85.2 fl (80-96); MEAN PLT VOLUME 8.1 fl (7.5-11.1); PLATELET COUNT 275 10^3/uL (134-434); RBC 3.31 M/mm3 (3.60-5.2); RDW 15.3 % (11.6-15.6)
[2022-08-05 10:11] LABS: CALCIUM 8.2 mg/dL (8.5-10.1)
[2022-08-05 10:13] LABS: ALBUMIN 2.4 g/dl (3.4-5.0); BLOOD UREA NITROGEN 3.2 mg/dL (7-18)
[2022-08-05 10:15] LABS: TOT PROT 5.8 g/dl (6.4-8.2)
[2022-08-05 10:16] LABS: CREATININE 0.7 mg/dL (0.55-1.3)
[2022-08-05 10:17] LABS: BILIRUBIN,TOTAL 0.2 mg/dL (0.2-1)
[2022-08-05 10:31] VITALS: TEMP 98
[2022-08-05] MEDS: ENOXAPARIN NA (PORCINE) 40 MG/0.4 ML DISP.SYRIN SQ SCH (10:44)
[2022-08-05] MEDS: LORATADINE 10 MG TABLET PO SCH (10:44)
[2022-08-05] MEDS: CITALOPRAM HYDROBROMIDE 20 MG TABLET PO SCH (10:49)
[2022-08-05] MEDS: BRIMONIDINE TARTRATE 0.2% OPHTHALMIC 5 ML BOTTLE OU SCH (10:51)
[2022-08-05] MEDS: TIMOLOL 0.5% OPHTHALMIC SOL 5 ML BOTTLE OU SCH (10:52)
[2022-08-05 15:03] VITALS: BP 149/71; PULSE 61; RESP 18
[2022-08-05 16:06] VITALS: BMI 30.4
== END 2022-08-05 17:54 | disposition home or self-care (01) | DRG 392 ==
LOC: JER 11:40 → JERBED 17:43 → J5S 08-01 01:08
PROVIDERS: ADMIT Internal Medicine; ATTEND Internal Medicine
DX: K57.20 Diverticulitis of large intestine with perforation and abscess without bleeding (principal); K59.00 Constipation, unspecified; D72.829 Elevated white blood cell count, unspecified; H40.9 Unspecified glaucoma; K44.9 Diaphragmatic hernia without obstruction or gangrene; Z86.73 Personal history of transient ischemic attack (TIA), and cerebral infarction without residual deficits; Z98.84 Bariatric surgery status
CPT/HCPCS: 0241U-QW; 36415; 74177-TC; 80053; 81003; 83605; 83690; 83735; 84100; 85027; 85610; 85730; 86140; 86850; 86900; 86901; 87086; 93005; 93010; 99285-25; Q9967

== ENCOUNTER 2024-04-09 09:59 | Day surgery (SDC) | payer OTHER ==
[2024-04-09] MEDS: SODIUM CHLORIDE 250 ML IV ONE (10:26)
[2024-04-09] MEDS: FOSAPREPITANT DIMEGLUMINE 150 MG in SODIUM CHLORIDE 145 ML IVPB ONE (11:00)
[2024-04-09] MEDS: PALONOSETRON HCL 0.25 MG/5 ML VIAL IVPUSH ONE (11:39)
[2024-04-09] MEDS: DEXAMETHASONE SODIUM PHOSPHATE 10 MG in SODIUM CHLORIDE 50 ML IVPB ONE (11:39)
[2024-04-09] MEDS ORDERED: DOCETAXEL 128 MG in SODIUM CHLORIDE 250 ML IVPB ONE (12:00)
[2024-04-09] MEDS: DOCETAXEL 128 MG in SODIUM CHLORIDE 250 ML IVPB ONE (13:45)
[2024-04-09] MEDS: PORTA CATH FLUSH 10 ML IVPUSH PRN (15:50)
[2024-04-09 18:18] VITALS: BP 144/71; PULSE 70; RESP 20; TEMP 97.7
== END 2024-04-09 15:55 | disposition home or self-care (01) ==
LOC: JONCCHEMO 09:59 → J7W 10:01 → JONCCHEMO 15:55
PROVIDERS: ATTEND Internal Medicine Hematology & Oncology
DX: Z51.11 Encounter for antineoplastic chemotherapy (principal); C50.511 Malignant neoplasm of lower-outer quadrant of right female breast; Z17.0 Estrogen receptor positive status [ER+]
CPT/HCPCS: 96367; 96375; 96413; 96417; J1453; Q5116

== ENCOUNTER 2024-04-10 14:35 | Day surgery (SDC) | payer OTHER ==
[~2024-04-10 14:35] MED LIST: PEGFILGRASTIM (NEULASTA) 6 MG/0.6 ML DISP.SYRIN SQ ONE
[2024-04-10] MEDS: DEXTROSE 5%-NORMAL SALINE 500 ML IV ONE (15:00)
[2024-04-10] MEDS: DEXAMETHASONE SODIUM PHOSPHATE 6 MG in SODIUM CHLORIDE 50 ML IVPB ONE (15:00)
[2024-04-10] MEDS: PEGFILGRASTIM-CBQV (UDENYCA) 6 MG/0.6 ML SYRINGE SQ ONE (17:19)
[2024-04-10] MEDS: PORTA CATH FLUSH 10 ML IVPUSH PRN (17:20)
[2024-04-10 17:53] VITALS: RESP 18; TEMP 98
[2024-04-10 18:00] VITALS: BP 139/82; PULSE 71
== END 2024-04-10 18:04 | disposition home or self-care (01) ==
LOC: JONCCHEMO 14:35 → J7W 14:41 → JONCCHEMO 18:04
PROVIDERS: ATTEND Internal Medicine Hematology & Oncology
PROC: 3E043GC Introduction of Other Therapeutic Substance into Central Vein, Percutaneous Approach (ICD-10-PCS; principal; 2024-04-10)
PROC: 3E013GC Introduction of Other Therapeutic Substance into Subcutaneous Tissue, Percutaneous Approach (ICD-10-PCS; 2024-04-10)
DX: C50.511 Malignant neoplasm of lower-outer quadrant of right female breast (principal); Z17.0 Estrogen receptor positive status [ER+]
CPT/HCPCS: 96372; 96374; Q5111

== ENCOUNTER 2024-04-22 09:58 | Inpatient (IN) | payer OTHER ==
[2024-04-22 10:16] VITALS: BMI 28.3
[2024-04-22] MEDS ORDERED: morphine SULFATE 4 MG/ML VIAL ONE ×2 (10:34→15:02)
[2024-04-22] MEDS: morphine CARPU-JECT 4 MG/1 ML DISP.SYRIN IVPUSH ONE (10:39)
[2024-04-22] MEDS ORDERED: ACETAMINOPHEN INJECTION 100 ML ONE ×2 (10:48→16:20)
[2024-04-22] MEDS: ACETAMINOPHEN 1000 MG/100 ML BAG IVPB ONE (10:54)
[2024-04-22 10:59] LABS: HEMATOCRIT 30.6 % (32.4-45.2); HEMOGLOBIN 10.2 GM/dL (10.7-15.3); MCH 28.3 pg (25.7-33.7); MCHC 33.3 g/dl (32.0-36.0); MEAN CELL VOLUME 85.1 fl (80-96); MEAN PLT VOLUME 7.4 fl (7.5-11.1); PLATELET COUNT 231 10^3/uL (134-434); WHITE BLOOD COUNT 20.4 K/mm3 (4.0-10.0)
[2024-04-22] MEDS ORDERED: PIPERACILLIN/TAZOB 4.5 GM 4.5 GM/100 ML BAG IVPB ONE (11:21)
[2024-04-22 11:25] LABS: POTASSIUM 3.7 mmol/L (3.5-5.1)
[2024-04-22 11:27] LABS: CALCIUM 9.3 mg/dL (8.5-10.1)
[2024-04-22 11:28] LABS: BLOOD UREA NITROGEN 12.8 mg/dL (7-18); MAGNESIUM 2.1 mg/dL (1.8-2.4)
[2024-04-22] MEDS: PIPERACILLIN/TAZOB 4.5 GM 4.5 GM in DEXTROSE 5%-WATER 100 ML IVPB ONE (11:29)
[2024-04-22 11:31] LABS: CREATININE 0.9 mg/dL (0.55-1.3)
[2024-04-22 11:32] LABS: BILIRUBIN,TOTAL 0.4 mg/dL (0.2-1); TOT PROT 6.6 g/dl (6.4-8.2)
[2024-04-22] MEDS: LACTATED RINGERS SOLUTION 1000 ML INFUS.BAG IV ONE (11:33)
[2024-04-22 13:24] LABS: ANISOCYTOSIS 0; HELMET CELLS 0; HOWELL-JOLLY BODIES 0; MACROCYTOSIS 0; OVALOCYTE 0; ROULEAU 0; SICKELED CELLS 0; TARGET CELLS 0; TEAR DROP CELLS 0; TOXIC GRANULATION 0
[2024-04-22] MEDS: morphine CARPU-JECT 2 MG/1 ML DISP.SYRIN IVPUSH ONE (15:05)
[2024-04-22 15:35] LABS: PH,URINE 6.5 (5.0-8.0); URINE APPEARANCE CLEAR; URINE BILIRUBIN NEGATIVE (NEGATIVE); URINE COLOR YELLOW; URINE GLUCOSE (UA) NEGATIVE (NEGATIVE); URINE KETONE NEGATIVE (NEGATIVE); URINE LEUK ESTERASE NEGATIVE (NEGATIVE); URINE NITRITE NEGATIVE (NEGATIVE); URINE PROTEIN TRACE (NEGATIVE); URINE UROBILINOGEN 0.2 mg/dL (0.2-1.0)
[2024-04-22] MEDS: SODIUM CHLORIDE 1,000 ML IV SCH (15:42)
[2024-04-22] MEDS ORDERED: TRIMETHOBENZAMIDE HCL 200MG/2ML INJ IM PRN (15:47)
[2024-04-22] MEDS: ACETAMINOPHEN 1000 MG/100 ML BAG IVPB PRN (16:24)
[2024-04-22] MEDS ORDERED: PIPERACILLIN/TAZOB 3.375 GM 3.375 GM in DEXTROSE 5%-WATER - 50 ML IVPB SCH (18:00)
[2024-04-22] MEDS ORDERED: MORPHINE SULFATE 2 MG/ML SYRINGE ONE (18:31)
[2024-04-22] MEDS: traZODone HCL 100 MG TABLET (FP) PO SCH (21:41)
[2024-04-22] MEDS: CITALOPRAM HYDROBROMIDE 20 MG TABLET PO SCH (21:41)
[2024-04-23] MEDS: PIPERACILLIN/TAZOB 3.375 GM 3.375 GM in DEXTROSE 5%-WATER - 50 ML IVPB SCH (01:15)
[2024-04-23] MEDS: ENOXAPARIN NA (PORCINE) 40 MG/0.4 ML DISP.SYRIN SQ SCH (10:32)
[2024-04-23 11:27] LABS: BASO % 0.2 % (0-2.0); EOS % 0.1 % (0-4.5); HEMATOCRIT 27.9 % (32.4-45.2); HEMOGLOBIN 9.2 GM/dL (10.7-15.3); LYMPH % 9.2 % (8-40); MCH 28.7 pg (25.7-33.7); MCHC 33.1 g/dl (32.0-36.0); MEAN CELL VOLUME 86.6 fl (80-96); MEAN PLT VOLUME 7.5 fl (7.5-11.1); MONO % 6.5 % (3.8-10.2); PLATELET COUNT 182 10^3/uL (134-434); RBC 3.22 M/mm3 (3.60-5.2); RDW 15.2 % (11.6-15.6); WHITE BLOOD COUNT 15.2 K/mm3 (4.0-10.0)
[2024-04-23 11:54] LABS: POTASSIUM 3.4 mmol/L (3.5-5.1)
[2024-04-23 11:58] LABS: ALBUMIN 2.4 g/dl (3.4-5.0); CALCIUM 8.2 mg/dL (8.5-10.1)
[2024-04-23 12:01] LABS: CREATININE 0.7 mg/dL (0.55-1.3); PHOSPHOROUS 3.2 mg/dL (2.5-4.9)
[2024-04-23 12:02] LABS: BILIRUBIN,TOTAL 0.5 mg/dL (0.2-1); TOT PROT 5.9 g/dl (6.4-8.2)
[2024-04-23] MEDS: PIPERACILLIN/TAZOB 4.5 GM 4.5 GM in DEXTROSE 5%-WATER 100 ML IVPB SCH (15:54)
[2024-04-23] MEDS: POTASSIUM CHLORIDE TABS 20 MEQ TABLET.ER (FP) PO SCH (21:17)
[2024-04-23] MEDS: SODIUM CHLORIDE 1,000 ML IV SCH (21:18)
[2024-04-23] MEDS: ACETAMINOPHEN 1000 MG/100 ML BAG IVPB PRN (23:24)
[2024-04-24 10:32] LABS: HEMATOCRIT 28.5 % (32.4-45.2); HEMOGLOBIN 9.1 GM/dL (10.7-15.3); MCH 28.2 pg (25.7-33.7); MEAN PLT VOLUME 7.5 fl (7.5-11.1); PLATELET COUNT 232 10^3/uL (134-434); RBC 3.24 M/mm3 (3.60-5.2); RDW 15.2 % (11.6-15.6); WHITE BLOOD COUNT 14.8 K/mm3 (4.0-10.0)
[2024-04-24 11:00] LABS: CHLORIDE 107 mmol/L (98-107); POTASSIUM 3.9 mmol/L (3.5-5.1); SODIUM 140 mmol/L (136-145)
[2024-04-24 11:03] LABS: ALBUMIN 2.4 g/dl (3.4-5.0); ANION GAP 9 mmol/L (4-13); BLOOD UREA NITROGEN 7.5 mg/dL (7-18); CALCIUM 8.3 mg/dL (8.5-10.1); CO2 24 mmol/L (21-32); MAGNESIUM 1.9 mg/dL (1.8-2.4)
[2024-04-24 11:05] LABS: GLUCOSE,RANDOM 48 mg/dL (74-106)
[2024-04-24 11:07] LABS: BILIRUBIN,TOTAL 0.5 mg/dL (0.2-1); CREATININE 0.6 mg/dL (0.55-1.3); PHOSPHOROUS 2.9 mg/dL (2.5-4.9); SGOT/AST 11 U/L (15-37); SGPT/ALT 12 U/L (13-61); TOT PROT 5.7 g/dl (6.4-8.2)
[2024-04-24 11:09] LABS: ALK PHOS 121 U/L (45-117)
[2024-04-24] MEDS ORDERED: DEXTROSE 50%-WATER 25 GM/50 ML DISP.SYRIN ONE (11:36)
[2024-04-24] MEDS: DEXTROSE 50%-WATER - 25 GM/50 ML VIAL IVPUSH ONE (11:46)
[2024-04-24] MEDS ORDERED: ACETAMINOPHEN 1000 MG/100 ML BAG IVPB PRN (12:21)
[2024-04-24] MEDS: DEXTROSE 5%-0.45% SALINE 1,000 ML IV SCH (13:27)
[2024-04-24] MEDS: ACETAMINOPHEN 1000 MG/100 ML BAG IVPB ONE ×2 (13:32→22:01)
[2024-04-24 14:34] LABS: IRON SERUM 21 ug/dL (50-175)
[2024-04-24 14:38] LABS: TOTAL IRON BINDING CAPACITY 205 ug/dL (250-450)
[2024-04-25 09:36] LABS: BASO % 0.4 % (0-2.0); EOS % 0.4 % (0-4.5); HEMATOCRIT 30.4 % (32.4-45.2); HEMOGLOBIN 10.2 GM/dL (10.7-15.3); LYMPH % 12.7 % (8-40); MCH 28.8 pg (25.7-33.7); MCHC 33.5 g/dl (32.0-36.0); MEAN CELL VOLUME 85.9 fl (80-96); NEUT % 79.5 % (42.8-82.8); PLATELET COUNT 300 10^3/uL (134-434); RBC 3.54 M/mm3 (3.60-5.2); RDW 15.4 % (11.6-15.6); WHITE BLOOD COUNT 10.2 K/mm3 (4.0-10.0)
[2024-04-25 09:51] LABS: POTASSIUM 3.9 mmol/L (3.5-5.1)
[2024-04-25 09:53] LABS: ALBUMIN 2.5 g/dl (3.4-5.0); CALCIUM 8.6 mg/dL (8.5-10.1)
[2024-04-25 09:57] LABS: CREATININE 0.7 mg/dL (0.55-1.3)
[2024-04-25 09:58] LABS: BILIRUBIN,TOTAL 0.4 mg/dL (0.2-1); TOT PROT 6.6 g/dl (6.4-8.2)
[2024-04-25] MEDS: PIPERACILLIN/TAZOB 4.5 GM 4.5 GM/100 ML BAG IVPB SCH (17:15)
[2024-04-26 10:05] LABS: HEMATOCRIT 30.7 % (32.4-45.2); HEMOGLOBIN 9.8 GM/dL (10.7-15.3); MCH 27.8 pg (25.7-33.7); MCHC 31.9 g/dl (32.0-36.0); MEAN CELL VOLUME 87.1 fl (80-96); PLATELET COUNT 313 10^3/uL (134-434); RBC 3.53 M/mm3 (3.60-5.2); RDW 14.8 % (11.6-15.6); WHITE BLOOD COUNT 8.1 K/mm3 (4.0-10.0)
[2024-04-26 11:00] LABS: POTASSIUM 3.9 mmol/L (3.5-5.1)
[2024-04-26 11:12] LABS: ALBUMIN 2.5 g/dl (3.4-5.0)
[2024-04-26] MEDS: MAG HYDROX/AL HYDROX/SIMETH 30 ML UNIT-DOSE CUP PO ONE (11:13)
[2024-04-26 11:16] LABS: CREATININE 0.7 mg/dL (0.55-1.3)
[2024-04-26 11:17] LABS: BILIRUBIN,TOTAL 0.3 mg/dL (0.2-1); TOT PROT 6.3 g/dl (6.4-8.2)
[2024-04-27 11:12] LABS: HEMATOCRIT 32.4 % (32.4-45.2); HEMOGLOBIN 10.5 GM/dL (10.7-15.3); MCH 28.2 pg (25.7-33.7); MCHC 32.4 g/dl (32.0-36.0); MEAN CELL VOLUME 86.9 fl (80-96); MEAN PLT VOLUME 7.1 fl (7.5-11.1); PLATELET COUNT 401 10^3/uL (134-434); RBC 3.73 M/mm3 (3.60-5.2); RDW 14.9 % (11.6-15.6); WHITE BLOOD COUNT 7.2 K/mm3 (4.0-10.0)
[2024-04-27 11:40] LABS: POTASSIUM 4.2 mmol/L (3.5-5.1)
[2024-04-27 11:43] LABS: ALBUMIN 2.8 g/dl (3.4-5.0); BLOOD UREA NITROGEN 3.6 mg/dL (7-18)
[2024-04-27 11:46] LABS: CREATININE 0.9 mg/dL (0.55-1.3)
[2024-04-27 11:48] LABS: BILIRUBIN,TOTAL 0.2 mg/dL (0.2-1); TOT PROT 7.1 g/dl (6.4-8.2)
[2024-04-28] MEDS: MELATONIN 5 MG TABLETS PO PRN (01:45)
[2024-04-29 09:27] LABS: BASO % 1.1 % (0-2.0); HEMATOCRIT 29.1 % (32.4-45.2); HEMOGLOBIN 9.7 GM/dL (10.7-15.3); LYMPH % 20.2 % (8-40); MCH 28.4 pg (25.7-33.7); MCHC 33.2 g/dl (32.0-36.0); MEAN CELL VOLUME 85.6 fl (80-96); MEAN PLT VOLUME 6.5 fl (7.5-11.1); MONO % 9.6 % (3.8-10.2); NEUT % 67.1 % (42.8-82.8); PLATELET COUNT 415 10^3/uL (134-434); RDW 15.3 % (11.6-15.6); WHITE BLOOD COUNT 5.8 K/mm3 (4.0-10.0)
[2024-04-29 09:33] LABS: INR 1.02 (0.83-1.09); PROTHROMBIN TIME (PATIENT) 11.5 SEC (9.7-13.0)
[2024-04-29 09:48] LABS: POTASSIUM 3.8 mmol/L (3.5-5.1)
[2024-04-29 09:49] LABS: CALCIUM 8.7 mg/dL (8.5-10.1)
[2024-04-29 09:50] LABS: ALBUMIN 2.6 g/dl (3.4-5.0); BLOOD UREA NITROGEN 11.2 mg/dL (7-18)
[2024-04-29 09:53] LABS: CREATININE 0.9 mg/dL (0.55-1.3)
[2024-04-29 09:55] LABS: BILIRUBIN,TOTAL 0.2 mg/dL (0.2-1); TOT PROT 6.5 g/dl (6.4-8.2)
[2024-04-30] MEDS: MAG HYDROX/AL HYDROX/SIMETH 30 ML UNIT-DOSE CUP PO ONE (14:05)
[2024-04-30] MEDS: AMOX TR/POT CLAV 875MG/125MG TABLETS (FP) PO SCH (16:56)
[2024-05-01] MEDS: POLYETHYLENE GLYCOL 3350 255 GM BTL PO ONE (09:55)
[2024-05-01 10:53] LABS: HEMATOCRIT 29.9 % (32.4-45.2); HEMOGLOBIN 9.7 GM/dL (10.7-15.3); MCH 28.3 pg (25.7-33.7); MCHC 32.5 g/dl (32.0-36.0); MEAN CELL VOLUME 87.2 fl (80-96); MEAN PLT VOLUME 6.7 fl (7.5-11.1); PLATELET COUNT 466 10^3/uL (134-434); RBC 3.43 M/mm3 (3.60-5.2); RDW 15.3 % (11.6-15.6); WHITE BLOOD COUNT 5.8 K/mm3 (4.0-10.0)
[2024-05-01 11:20] LABS: POTASSIUM 4.2 mmol/L (3.5-5.1)
[2024-05-01 11:28] LABS: CALCIUM 8.8 mg/dL (8.5-10.1)
[2024-05-01 11:29] LABS: BLOOD UREA NITROGEN 7.7 mg/dL (7-18); MAGNESIUM 2.1 mg/dL (1.8-2.4)
[2024-05-01 11:31] LABS: CREATININE 0.7 mg/dL (0.55-1.3)
[2024-05-01 11:32] LABS: PHOSPHOROUS 3.8 mg/dL (2.5-4.9)
[2024-05-01] MEDS: BISACODYL 5 MG TABLET.DR (FP) PO ONE (12:26)
[2024-05-01] MEDS: metroNIDAZOLE 250 MG TABLET PO SCH (14:47)
[2024-05-01] MEDS: NEOMYCIN SO4 500 MG TABLET PO SCH (14:47)
[2024-05-02] MEDS: LACTATED RINGERS SOLUTION 1,000 ML/1,000 ML INFUS.BAG IV SCH ×3 (00:21→17:01)
[2024-05-02 08:59] LABS: BASO % 1.5 % (0-2.0); EOS % 5.6 % (0-4.5); HEMATOCRIT 34.1 % (32.4-45.2); HEMOGLOBIN 11.1 GM/dL (10.7-15.3); LYMPH % 31.3 % (8-40); MCH 28.3 pg (25.7-33.7); MCHC 32.5 g/dl (32.0-36.0); MEAN CELL VOLUME 87.2 fl (80-96); MEAN PLT VOLUME 6.8 fl (7.5-11.1); MONO % 11.2 % (3.8-10.2); NEUT % 50.4 % (42.8-82.8); PLATELET COUNT 544 10^3/uL (134-434); RBC 3.91 M/mm3 (3.60-5.2); RDW 15.9 % (11.6-15.6); WHITE BLOOD COUNT 5.9 K/mm3 (4.0-10.0)
[2024-05-02 09:04] LABS: INR 1.01 (0.83-1.09); PROTHROMBIN TIME (PATIENT) 11.6 SEC (9.7-13.0)
[2024-05-02 09:22] LABS: POTASSIUM 4.4 mmol/L (3.5-5.1)
[2024-05-02 09:24] LABS: BLOOD UREA NITROGEN 8.4 mg/dL (7-18); CALCIUM 9.4 mg/dL (8.5-10.1)
[2024-05-02 09:28] LABS: CREATININE 0.8 mg/dL (0.55-1.3)
[2024-05-02] MEDS ORDERED: INDOCYANINE GREEN 25 MG/10 ML VIAL IVPUSH ONE (10:57)
[2024-05-02] MEDS ORDERED: BUPIVACAINE HCL/PF 0.25% (2.5MG/ML) 10 ML VIAL ONE (10:58)
[2024-05-02] MEDS ORDERED: ACETAMINOPHEN INJECTION 100 ML ONE (11:00)
[2024-05-02] MEDS ORDERED: PROPOFOL 20 ML ONE (11:04)
[2024-05-02] MEDS ORDERED: LIDOCAINE HCL/PF 2% SDV 5ML VIAL ONE (11:04)
[2024-05-02] MEDS ORDERED: ROCURONIUM BROMIDE 50 MG/5 ML SYRINGE ONE ×2 (11:05→12:57)
[2024-05-02] MEDS ORDERED: MIDAZOLAM HCL 2 MG/2 ML SINGLE DOSE VIAL ONE (11:05)
[2024-05-02] MEDS: cefoTEtan DISODIUM 2 GM VIAL (RESTRICTED TO ID) IVPB ONE (11:50)
[2024-05-02] MEDS: BUPIVACAINE HCL/PF 0.25% (2.5MG/ML) 10 ML VIAL IJ ONE (11:52)
[2024-05-02] MEDS ORDERED: cefOXitin SODIUM 2 GM VIAL (RESTRICTED TO ID) IVPB ONE (11:54)
[2024-05-02] MEDS ORDERED: HYDROmorphone HCl 2 MG/ML VIAL ONE (12:38)
[2024-05-02] MEDS ORDERED: TRANEXAMIC ACID 1000 MG/10 ML VIAL ONE (13:10)
[2024-05-02] MEDS ORDERED: ONDANSETRON 4 MG/2 ML VIAL IVPUSH PRN ×2 (14:20→16:22)
[2024-05-02] MEDS ORDERED: SUGAMMADEX SODIUM 200 MG/2 ML VIAL ONE (15:33)
[2024-05-02] MEDS ORDERED: ONDANSETRON 4 MG/2 ML VIAL ONE (15:33)
[2024-05-02] MEDS ORDERED: TRIMETHOBENZAMIDE HCL 200MG/2ML INJ IM PRN (16:22)
[2024-05-02] MEDS ORDERED: oxyCODONE HCL 5 MG TABLET PO PRN ×3 (16:22→16:50)
[2024-05-02] MEDS: ACETAMINOPHEN 1000 MG/100 ML BAG IVPB SCH (16:36)
[2024-05-02] MEDS ORDERED: KETOROLAC TROMETHAMINE 30 MG/1 ML VIAL ONE (17:06)
[2024-05-02] MEDS: KETOROLAC TROMETHAMINE 15 MG/ML VIAL IVPUSH PRN (17:08)
[2024-05-02] MEDS ORDERED: HYDROmorphone HCL CARPU-JECT 2 MG/1 ML DISP.SYRIN ONE (17:14)
[2024-05-02] MEDS: HYDROmorphone HCl 2 MG/ML VIAL IVPUSH PRN ×2 (17:22→17:57)
[2024-05-02] MEDS ORDERED: AMOX TR/POT CLAV 875MG/125MG TABLETS (FP) PO SCH (17:30)
[2024-05-02] MEDS: HYDROmorphone *PCA* 10MG/50ML DISP.SYRIN PCA SCH (18:13)
[2024-05-02] MEDS ORDERED: traZODone HCL 100 MG TABLET (FP) PO SCH (22:00)
[2024-05-02] MEDS: CITALOPRAM HYDROBROMIDE 20 MG TABLET PO SCH (22:11)
[2024-05-02] MEDS: MELATONIN 5 MG TABLETS PO PRN (23:23)
[2024-05-03] MEDS: CEFOXITIN SODIUM/DEXTROSE,ISO 2 GM/50 ML BAG IVPB SCH (04:00)
[2024-05-03] MEDS: ENOXAPARIN NA (PORCINE) 40 MG/0.4 ML DISP.SYRIN SQ SCH (10:45)
[2024-05-03 11:04] LABS: BASO % 0.7 % (0-2.0); EOS % 0.9 % (0-4.5); HEMATOCRIT 24.5 % (32.4-45.2); HEMOGLOBIN 8.2 GM/dL (10.7-15.3); LYMPH % 11.8 % (8-40); MCHC 33.2 g/dl (32.0-36.0); MEAN CELL VOLUME 87.5 fl (80-96); MEAN PLT VOLUME 6.8 fl (7.5-11.1); MONO % 12.3 % (3.8-10.2); NEUT % 74.3 % (42.8-82.8); PLATELET COUNT 358 10^3/uL (134-434); RBC 2.81 M/mm3 (3.60-5.2); RDW 15.9 % (11.6-15.6); WHITE BLOOD COUNT 8.7 K/mm3 (4.0-10.0)
[2024-05-03 11:08] LABS: POTASSIUM 4.1 mmol/L (3.5-5.1)
[2024-05-03 11:16] LABS: BLOOD UREA NITROGEN 9.2 mg/dL (7-18); CALCIUM 8.2 mg/dL (8.5-10.1)
[2024-05-03 11:20] LABS: CREATININE 1.1 mg/dL (0.55-1.3)
[2024-05-03] MEDS ORDERED: ACETAMINOPHEN 500 MG TABLET (FP) PO PRN (15:31)
[2024-05-03] MEDS: diphenhydrAMINE HCL 25 MG CAPSULE (FP) PO ONE ×2 (16:25→23:18)
[2024-05-03] MEDS ORDERED: HYDROmorphone *PCA* 10MG/50ML DISP.SYRIN ONE (17:29)
[2024-05-04 10:25] LABS: BASO % 0.7 % (0-2.0); HEMOGLOBIN 7.9 GM/dL (10.7-15.3); LYMPH % 15.1 % (8-40); MCH 28.8 pg (25.7-33.7); MEAN CELL VOLUME 87.1 fl (80-96); MEAN PLT VOLUME 6.8 fl (7.5-11.1); MONO % 9.8 % (3.8-10.2); NEUT % 71.4 % (42.8-82.8); PLATELET COUNT 347 10^3/uL (134-434); RBC 2.76 M/mm3 (3.60-5.2); RDW 15.9 % (11.6-15.6); WHITE BLOOD COUNT 8.4 K/mm3 (4.0-10.0)
[2024-05-04 10:47] LABS: POTASSIUM 3.9 mmol/L (3.5-5.1)
[2024-05-04 10:48] LABS: CALCIUM 7.9 mg/dL (8.5-10.1)
[2024-05-04 10:49] LABS: BLOOD UREA NITROGEN 5.9 mg/dL (7-18)
[2024-05-04 10:52] LABS: CREATININE 0.6 mg/dL (0.55-1.3)
[2024-05-04] MEDS: PIPERACILLIN/TAZOB 2.25 GM 2.25 GM in DEXTROSE 5%-WATER - 50 ML IVPB SCH (19:31)
[2024-05-04] MEDS: KETOROLAC TROMETHAMINE 15 MG/ML VIAL IVPUSH SCH (19:32)
[2024-05-04] MEDS: ACETAMINOPHEN 500 MG TABLET (FP) PO SCH (22:20)
[2024-05-05 09:02] LABS: BASO % 0.6 % (0-2.0); EOS % 6.6 % (0-4.5); HEMATOCRIT 24.6 % (32.4-45.2); MCH 28.6 pg (25.7-33.7); MCHC 32.6 g/dl (32.0-36.0); MEAN CELL VOLUME 87.7 fl (80-96); MONO % 11.3 % (3.8-10.2); NEUT % 64.5 % (42.8-82.8); PLATELET COUNT 335 10^3/uL (134-434); RDW 16.3 % (11.6-15.6); WHITE BLOOD COUNT 6.6 K/mm3 (4.0-10.0)
[2024-05-05 09:17] LABS: POTASSIUM 3.7 mmol/L (3.5-5.1)
[2024-05-05 09:18] LABS: BLOOD UREA NITROGEN 7.4 mg/dL (7-18); CALCIUM 8.5 mg/dL (8.5-10.1)
[2024-05-05 09:19] LABS: MAGNESIUM 1.8 mg/dL (1.8-2.4)
[2024-05-05 09:22] LABS: CREATININE 0.7 mg/dL (0.55-1.3); PHOSPHOROUS 3.8 mg/dL (2.5-4.9)
[2024-05-05] MEDS: MAG HYDROX/AL HYDROX/SIMETH 30 ML UNIT-DOSE CUP PO PRN (12:35)
[2024-05-05] MEDS: PANTOPRAZOLE 40 MG TABLET PO ONE (16:14)
[2024-05-06 08:24] LABS: BASO % 0.6 % (0-2.0); EOS % 7.3 % (0-4.5); HEMATOCRIT 22.9 % (32.4-45.2); HEMOGLOBIN 7.6 GM/dL (10.7-15.3); LYMPH % 11.9 % (8-40); MCH 29.1 pg (25.7-33.7); MCHC 33.1 g/dl (32.0-36.0); NEUT % 72.2 % (42.8-82.8); PLATELET COUNT 331 10^3/uL (134-434); RDW 16.2 % (11.6-15.6); WHITE BLOOD COUNT 6.4 K/mm3 (4.0-10.0)
[2024-05-06 08:32] LABS: POTASSIUM 3.8 mmol/L (3.5-5.1)
[2024-05-06 08:34] LABS: CALCIUM 8.6 mg/dL (8.5-10.1)
[2024-05-06 08:37] LABS: CREATININE 0.7 mg/dL (0.55-1.3)
[2024-05-06] MEDS: PANTOPRAZOLE 40 MG TABLET PO SCH (09:18)
[2024-05-06] MEDS: MULTIVITAMINS (DAILY MVI) TABLET (FP) PO SCH (09:18)
[2024-05-06] MEDS ORDERED: IBUPROFEN 600 MG TABLET (FP) PO PRN (10:56)
[2024-05-06] MEDS: IBUPROFEN 600 MG TABLET (FP) PO SCH (11:55)
[2024-05-06] MEDS: FAMOTIDINE 10 MG TABLET PO SCH (13:35)
[2024-05-06 15:41] LABS: BASO % 0.9 % (0-2.0); EOS % 7.6 % (0-4.5); HEMATOCRIT 26.4 % (32.4-45.2); HEMOGLOBIN 8.5 GM/dL (10.7-15.3); LYMPH % 18.6 % (8-40); MCH 28.7 pg (25.7-33.7); MCHC 32.3 g/dl (32.0-36.0); MEAN CELL VOLUME 89.1 fl (80-96); MONO % 8.8 % (3.8-10.2); NEUT % 64.1 % (42.8-82.8); PLATELET COUNT 351 10^3/uL (134-434); RBC 2.96 M/mm3 (3.60-5.2); RDW 16.8 % (11.6-15.6); WHITE BLOOD COUNT 7.4 K/mm3 (4.0-10.0)
[2024-05-06] MEDS: oxyCODONE HCL 5 MG TABLET PO PRN (18:01)
[2024-05-07] MEDS ORDERED: oxyCODONE HCL 5 MG TABLET PO PRN ×2 (08:50→08:51)
[2024-05-07 09:48] LABS: BASO % 0.4 % (0-2.0); EOS % 5.4 % (0-4.5); HEMATOCRIT 25.2 % (32.4-45.2); HEMOGLOBIN 8.3 GM/dL (10.7-15.3); LYMPH % 16.2 % (8-40); MCH 28.4 pg (25.7-33.7); MCHC 32.8 g/dl (32.0-36.0); MEAN CELL VOLUME 86.4 fl (80-96); MEAN PLT VOLUME 7.2 fl (7.5-11.1); PLATELET COUNT 338 10^3/uL (134-434); RBC 2.92 M/mm3 (3.60-5.2); RDW 16.8 % (11.6-15.6)
[2024-05-07 09:50] VITALS: BP 130/63; PULSE 72; RESP 13; TEMP 98.1
[2024-05-07 09:59] LABS: POTASSIUM 3.5 mmol/L (3.5-5.1)
[2024-05-07 10:06] LABS: CREATININE 0.6 mg/dL (0.55-1.3)
[2024-05-07] MEDS: FERROUS SO4 325 MG TABLET (FP) PO SCH (10:40)
[2024-05-07] MEDS: IRON SUCROSE INJECTION 200 MG in SODIUM CHLORIDE 100 ML IVPB ONE (12:55)
== END 2024-05-07 17:43 | disposition home or self-care (01) | DRG 331 ==
LOC: JER 09:58 → JERBED 15:32 → J6S 19:34 → J8W 05-02 20:13
PROVIDERS: ADMIT Student in an Organized Health Care Education/Training Program; ATTEND Nurse Practitioner Family
PROC: 0DTN4ZZ Resection of Sigmoid Colon, Percutaneous Endoscopic Approach (ICD-10-PCS; principal; 2024-05-02 11:00)
DX: K57.20 Diverticulitis of large intestine with perforation and abscess without bleeding (principal); C50.911 Malignant neoplasm of unspecified site of right female breast; F32.A Depression, unspecified; F12.90 Cannabis use, unspecified, uncomplicated; K66.0 Peritoneal adhesions (postprocedural) (postinfection); K44.9 Diaphragmatic hernia without obstruction or gangrene; K57.90 Diverticulosis of intestine, part unspecified, without perforation or abscess without bleeding; K82.8 Other specified diseases of gallbladder; F17.210 Nicotine dependence, cigarettes, uncomplicated; E16.1 Other hypoglycemia; D64.9 Anemia, unspecified; Z86.73 Personal history of transient ischemic attack (TIA), and cerebral infarction without residual deficits; Z98.84 Bariatric surgery status
CPT/HCPCS: 0241U-QW; 36415; 71045-TC-FY; 74177-TC; 80048; 80053; 81003; 82272; 82607; 82728; 82746; 82962; 83540; 83550; 83605; 83690; 83735; 84100; 84443; 84466; 85025; 85027; 85045; 85610; 86140; 86850; 86900; 86901; 87086; 88307-TC; 93005; 93010; 94760; 97116-GP; 97161-GP; 99285-25; J0131; J1756

== ENCOUNTER 2024-06-11 13:28 | Day surgery (SDC) | payer OTHER ==
[2024-06-11 11:03] LABS: BASO % 0.1 % (0-2.0); HEMATOCRIT 36.1 % (32.4-45.2); HEMOGLOBIN 11.7 GM/dL (10.7-15.3); LYMPH % 6.8 % (8-40); MCH 29.4 pg (25.7-33.7); MCHC 32.3 g/dl (32.0-36.0); MEAN CELL VOLUME 90.8 fl (80-96); MEAN PLT VOLUME 7.6 fl (7.5-11.1); NEUT % 88.1 % (42.8-82.8); PLATELET COUNT 240 10^3/uL (134-434); RBC 3.97 M/mm3 (3.60-5.2); RDW 18.3 % (11.6-15.6); WHITE BLOOD COUNT 9.6 K/mm3 (4.0-10.0)
[2024-06-11] MEDS: SODIUM CHLORIDE 250 ML IV ONE (11:23)
[2024-06-11 11:30] LABS: POTASSIUM 3.5 mmol/L (3.5-5.1)
[2024-06-11 11:32] LABS: CALCIUM 9.6 mg/dL (8.5-10.1)
[2024-06-11 11:33] LABS: ALBUMIN 3.4 g/dl (3.4-5.0); BLOOD UREA NITROGEN 19.2 mg/dL (7-18); MAGNESIUM 1.8 mg/dL (1.8-2.4)
[2024-06-11 11:37] LABS: BILIRUBIN,TOTAL 0.3 mg/dL (0.2-1); TOT PROT 7.2 g/dl (6.4-8.2)
[2024-06-11] MEDS: FOSAPREPITANT DIMEGLUMINE 150 MG in SODIUM CHLORIDE 145 ML IVPB ONE (11:45)
[2024-06-11] MEDS: DEXAMETHASONE SODIUM PHOSPHATE 10 MG in SODIUM CHLORIDE 50 ML IVPB ONE (12:49)
[2024-06-11] MEDS: PALONOSETRON HCL 0.25 MG/5 ML VIAL IVPUSH ONE (12:49)
[2024-06-11] MEDS: LORATADINE 10 MG TABLET PO ONE (13:08)
[~2024-06-11 13:28] MED LIST changes: +CARBOPLATIN IVPB ONE; +DOCETAXEL 124 MG in SODIUM CHLORIDE 250 ML IVPB ONE; -PEGFILGRASTIM (NEULASTA) 6 MG/0.6 ML DISP.SYRIN SQ ONE; +SODIUM CHLORIDE IVPB ONE
[2024-06-11] MEDS: SODIUM CHLORIDE IVPB ONE ×2 (13:29→16:15)
[2024-06-11] MEDS: TRASTUZUMAB QYYP IVPB ONE (13:29)
[2024-06-11] MEDS: DOCETAXEL 124 MG in SODIUM CHLORIDE 250 ML IVPB ONE (15:06)
[2024-06-11] MEDS: CARBOPLATIN IVPB ONE (16:15)
[2024-06-11 16:25] VITALS: TEMP 97.7
[2024-06-11] MEDS: PORTA CATH FLUSH 10 ML IVPUSH PRN (17:00)
[2024-06-11 18:01] VITALS: BP 143/57; PULSE 64; RESP 18
== END 2024-06-11 17:30 | disposition home or self-care (01) ==
LOC: JONCCHEMO 13:28
PROVIDERS: ATTEND Internal Medicine Hematology & Oncology
PROC: 3E0437Z Introduction of Electrolytic and Water Balance Substance into Central Vein, Percutaneous Approach (ICD-10-PCS; principal; 2024-06-11)
PROC: 3E043GC Introduction of Other Therapeutic Substance into Central Vein, Percutaneous Approach (ICD-10-PCS; 2024-06-11)
PROC: 3E04305 Introduction of Other Antineoplastic into Central Vein, Percutaneous Approach (ICD-10-PCS; 2024-06-11)
DX: Z51.11 Encounter for antineoplastic chemotherapy (principal); C50.511 Malignant neoplasm of lower-outer quadrant of right female breast; Z17.0 Estrogen receptor positive status [ER+]
CPT/HCPCS: 36415; 80053; 83735; 85025; 96365; 96366; 96367; 96413; 96415; 96417; J1453; Q5116

== ENCOUNTER 2024-06-12 12:45 | Day surgery (SDC) | payer OTHER ==
[2024-06-12] MEDS: DEXTROSE 5%-NORMAL SALINE 500 ML IV ONE (12:57)
[2024-06-12] MEDS: DEXAMETHASONE SODIUM PHOSPHATE 6 MG in SODIUM CHLORIDE 50 ML IVPB ONE (12:58)
[2024-06-12] MEDS: LORATADINE 10 MG TABLET PO ONE (12:59)
[2024-06-12] MEDS: PEGFILGRASTIM-CBQV (UDENYCA) 6 MG/0.6 ML SYRINGE SQ ONE (14:43)
[2024-06-12 14:55] VITALS: RESP 20; TEMP 98.2
[2024-06-12] MEDS: PORTA CATH FLUSH 10 ML IVPUSH PRN (15:00)
[2024-06-12 15:02] VITALS: BP 157/68; PULSE 55
== END 2024-06-12 15:10 | disposition home or self-care (01) ==
LOC: JONCCHEMO 12:45 → J7W 12:47 → JONCCHEMO 15:10
PROVIDERS: ATTEND Internal Medicine Hematology & Oncology
PROC: 3E043GC Introduction of Other Therapeutic Substance into Central Vein, Percutaneous Approach (ICD-10-PCS; principal; 2024-06-12)
PROC: 3E013GC Introduction of Other Therapeutic Substance into Subcutaneous Tissue, Percutaneous Approach (ICD-10-PCS; 2024-06-12)
DX: C50.511 Malignant neoplasm of lower-outer quadrant of right female breast (principal); Z17.0 Estrogen receptor positive status [ER+]
CPT/HCPCS: 96372; 96374; Q5111

== ENCOUNTER 2024-07-24 09:33 | Day surgery (SDC) | payer OTHER ==
[2024-07-24] MEDS: SODIUM CHLORIDE 250 ML IV ONE (10:03)
[2024-07-24] MEDS ORDERED: LORATADINE 10 MG TABLET PO ONE (10:30)
[2024-07-24] MEDS: FOSAPREPITANT DIMEGLUMINE 150 MG in SODIUM CHLORIDE 145 ML IVPB ONE (10:30)
[2024-07-24] MEDS: DEXAMETHASONE SODIUM PHOSPHATE 10 MG in SODIUM CHLORIDE 50 ML IVPB ONE (11:15)
[2024-07-24] MEDS: PALONOSETRON HCL 0.25 MG/5 ML VIAL IVPUSH ONE (11:45)
[2024-07-24] MEDS: SODIUM CHLORIDE IVPB ONE ×2 (11:47→14:50)
[2024-07-24] MEDS: TRASTUZUMAB QYYP IVPB ONE (11:47)
[2024-07-24] MEDS: LORATADINE 10 MG TABLET PO ONE (13:02)
[2024-07-24] MEDS: SODIUM CHLORIDE IV ONE (13:36)
[2024-07-24] MEDS: DOCETAXEL IV ONE (13:36)
[2024-07-24] MEDS: CARBOPLATIN IVPB ONE (14:50)
[2024-07-24] MEDS: FAMOTIDINE 20 MG TABLET PO ONE (15:25)
[2024-07-24 15:49] VITALS: RESP 20; TEMP 98
[2024-07-24] MEDS ORDERED: PORTA CATH FLUSH 10 ML IVPUSH PRN (15:59)
[2024-07-24 16:00] VITALS: BP 190/86; PULSE 76
== END 2024-07-24 15:15 | disposition home or self-care (01) ==
LOC: JONCCHEMO 09:33
PROVIDERS: ATTEND Internal Medicine Hematology & Oncology
PROC: 3E04305 Introduction of Other Antineoplastic into Central Vein, Percutaneous Approach (ICD-10-PCS; principal; 2024-07-24)
PROC: 3E043GC Introduction of Other Therapeutic Substance into Central Vein, Percutaneous Approach (ICD-10-PCS; 2024-07-24)
DX: Z51.11 Encounter for antineoplastic chemotherapy (principal); C50.511 Malignant neoplasm of lower-outer quadrant of right female breast; Z17.0 Estrogen receptor positive status [ER+]
CPT/HCPCS: 96374; 96375; 96413; 96415; 96417; J1453; Q5116

== ENCOUNTER 2024-07-25 17:20 | Day surgery (SDC) | payer OTHER ==
[2024-07-25] MEDS: DEXAMETHASONE SODIUM PHOSPHATE 6 MG in SODIUM CHLORIDE 50 ML IVPB ONE (16:52)
[2024-07-25] MEDS: LORATADINE 10 MG TABLET PO ONE (16:52)
[2024-07-25] MEDS: DEXTROSE 5%-NORMAL SALINE 500 ML IV ONE (16:53)
[2024-07-25] MEDS: PEGFILGRASTIM-CBQV (UDENYCA) 6 MG/0.6 ML SYRINGE SQ ONE (16:54)
[~2024-07-25 17:20] MED LIST changes: +DEXAMETHASONE SODIUM PHOSPHATE 10 MG in SODIUM CHLORIDE 50 ML IVPB ONE; -DOCETAXEL 124 MG in SODIUM CHLORIDE 250 ML IVPB ONE; +DOCETAXEL 128 MG in SODIUM CHLORIDE 250 ML IVPB ONE; +FOSAPREPITANT DIMEGLUMINE 150 MG in SODIUM CHLORIDE 145 ML IVPB ONE; +PALONOSETRON HCL 0.25 MG/5 ML VIAL IVPUSH ONE; +SODIUM CHLORIDE 250 ML IV ONE; +TRASTUZUMAB-QYYP 410 MG in SODIUM CHLORIDE 250 ML IVPB ONE
[2024-07-25 17:50] VITALS: RESP 18; TEMP 97.5
[2024-07-25] MEDS: PORTA CATH FLUSH 10 ML IVPUSH PRN (18:55)
[2024-07-25 18:56] VITALS: BP 125/53; PULSE 71
== END 2024-07-25 18:59 | disposition home or self-care (01) ==
LOC: J7W 17:20 → JONCCHEMO 17:20
PROVIDERS: ATTEND Internal Medicine Hematology & Oncology
PROC: 3E043GC Introduction of Other Therapeutic Substance into Central Vein, Percutaneous Approach (ICD-10-PCS; principal; 2024-07-25)
DX: C50.511 Malignant neoplasm of lower-outer quadrant of right female breast (principal); Z76.89 Persons encountering health services in other specified circumstances
CPT/HCPCS: 96361; 96365; 96372; Q5111

== ENCOUNTER 2024-08-31 13:57 | Day surgery (SDC) | payer OTHER ==
[2024-09-03 13:54] LABS: BASO % 0.7 % (0-2.0); EOS % 2.7 % (0-4.5); HEMATOCRIT 34.3 % (32.4-45.2); HEMOGLOBIN 11.3 GM/dL (10.7-15.3); LYMPH % 13.3 % (8-40); MCH 29.9 pg (25.7-33.7); MCHC 32.9 g/dl (32.0-36.0); MEAN PLT VOLUME 6.8 fl (7.5-11.1); MONO % 6.7 % (3.8-10.2); NEUT % 76.6 % (42.8-82.8); PLATELET COUNT 280 10^3/uL (134-434); RBC 3.77 M/mm3 (3.60-5.2); RDW 18.2 % (11.6-15.6); WHITE BLOOD COUNT 7.5 K/mm3 (4.0-10.0)
[2024-09-03] MEDS: SODIUM CHLORIDE 250 ML IV ONE (14:21)
[2024-09-03 14:50] LABS: POTASSIUM 3.9 mmol/L (3.5-5.1)
[2024-09-03 14:52] LABS: CALCIUM 9.1 mg/dL (8.5-10.1)
[2024-09-03 14:53] LABS: ALBUMIN 3.6 g/dl (3.4-5.0)
[2024-09-03 14:54] LABS: MAGNESIUM 1.6 mg/dL (1.8-2.4)
[2024-09-03 14:58] LABS: TOT PROT 7.5 g/dl (6.4-8.2)
[2024-09-03] MEDS: PALONOSETRON HCL 0.25 MG/5 ML VIAL IVPUSH ONE (15:13)
[2024-09-03] MEDS: FOSAPREPITANT DIMEGLUMINE 150 MG in SODIUM CHLORIDE 145 ML IVPB ONE (15:14)
[2024-09-03] MEDS: LORATADINE 10 MG TABLET PO ONE (15:15)
[2024-09-03] MEDS: MAGNESIUM OXIDE 400 MG TABLET (FP) PO ONE (15:20)
[2024-09-03] MEDS: INSULIN (NOVOLOG) ASPART 100 UNITS/ML 10ML VIAL SQ ONE (15:42)
[2024-09-03] MEDS: DEXAMETHASONE SODIUM PHOSPHATE 10 MG in SODIUM CHLORIDE 50 ML IVPB ONE (15:47)
[2024-09-03] MEDS: TRASTUZUMAB QYYP IVPB ONE (16:04)
[2024-09-03] MEDS: SODIUM CHLORIDE IVPB ONE ×2 (16:04→17:50)
[2024-09-03] MEDS: DOCETAXEL IV ONE (16:39)
[2024-09-03] MEDS: SODIUM CHLORIDE IV ONE (16:39)
[2024-09-03] MEDS: CARBOPLATIN IVPB ONE (17:50)
[2024-09-03 18:40] VITALS: BP 121/63; PULSE 77; RESP 18; TEMP 97.6
[2024-09-03] MEDS: PORTA CATH FLUSH 10 ML IVPUSH PRN (18:45)
== END 2024-09-03 18:45 | disposition home or self-care (01) ==
LOC: JONCCHEMO 13:57 → J7W 09-03 13:59 → JONCCHEMO 09-03 18:45
PROVIDERS: ATTEND Internal Medicine Hematology & Oncology
DX: Z51.11 Encounter for antineoplastic chemotherapy (principal); C50.919 Malignant neoplasm of unspecified site of unspecified female breast; Z17.0 Estrogen receptor positive status [ER+]
CPT/HCPCS: 36415; 80053; 83735; 85025; 96367; 96375; 96413; 96417; J1453; Q5116

== ENCOUNTER 2024-09-04 11:56 | Day surgery (SDC) | payer OTHER ==
[2024-09-04] MEDS: PEGFILGRASTIM-CBQV (UDENYCA) 6 MG/0.6 ML SYRINGE SQ ONE (12:20)
[2024-09-04] MEDS: MAGNESIUM SULFATE IN WATER 2 GM/50 ML IVPB IVPB ONE (12:20)
[2024-09-04] MEDS: LORATADINE 10 MG TABLET PO ONE (12:20)
[2024-09-04] MEDS: DEXTROSE 5%-NORMAL SALINE 500 ML IV ONE (12:21)
[2024-09-04] MEDS: DEXAMETHASONE SODIUM PHOSPHATE 6 MG in SODIUM CHLORIDE 50 ML IVPB ONE (12:22)
[2024-09-04] MEDS: PORTA CATH FLUSH 10 ML IVPUSH PRN (14:25)
[2024-09-04 14:51] VITALS: TEMP 97.6
[2024-09-04 14:55] VITALS: BP 107/54; PULSE 72; RESP 18
== END 2024-09-04 14:30 | disposition home or self-care (01) ==
LOC: JONCCHEMO 11:56
PROVIDERS: ATTEND Internal Medicine Hematology & Oncology
PROC: 3E043GC Introduction of Other Therapeutic Substance into Central Vein, Percutaneous Approach (ICD-10-PCS; principal; 2024-09-04)
PROC: 3E013GC Introduction of Other Therapeutic Substance into Subcutaneous Tissue, Percutaneous Approach (ICD-10-PCS; 2024-09-04)
DX: C50.511 Malignant neoplasm of lower-outer quadrant of right female breast (principal); Z17.0 Estrogen receptor positive status [ER+]; Z76.89 Persons encountering health services in other specified circumstances
CPT/HCPCS: 96365; 96366; 96372; Q5111

== ENCOUNTER 2024-09-24 10:08 | Day surgery (SDC) | payer OTHER ==
[2024-09-24 10:21] LABS: BASO % 0.9 % (0-2.0); EOS % 5.8 % (0-4.5); LYMPH % 27.5 % (8-40); MCHC 33.3 g/dl (32.0-36.0); MEAN CELL VOLUME 96.3 fl (80-96); MEAN PLT VOLUME 6.7 fl (7.5-11.1); MONO % 8.6 % (3.8-10.2); NEUT % 57.2 % (42.8-82.8); PLATELET COUNT 278 10^3/uL (134-434); RBC 3.11 M/mm3 (3.60-5.2); RDW 19.9 % (11.6-15.6); WHITE BLOOD COUNT 5.3 K/mm3 (4.0-10.0)
[2024-09-24 10:42] LABS: CHLORIDE 103 mmol/L (98-107); POTASSIUM 4.3 mmol/L (3.5-5.1); SODIUM 137 mmol/L (136-145)
[2024-09-24 10:45] LABS: ALBUMIN 3.4 g/dl (3.4-5.0); ANION GAP 9 mmol/L (4-13); CO2 25 mmol/L (21-32); GLUCOSE,RANDOM 103 mg/dL (74-106); MAGNESIUM 2.1 mg/dL (1.8-2.4)
[2024-09-24 10:48] LABS: CREATININE 0.9 mg/dL (0.55-1.3); SGOT/AST 21 U/L (15-37); SGPT/ALT 15 U/L (13-61)
[2024-09-24 10:49] LABS: BILIRUBIN,TOTAL 0.7 mg/dL (0.2-1); TOT PROT 7.1 g/dl (6.4-8.2)
[2024-09-24 10:50] LABS: ALK PHOS 115 U/L (45-117)
[2024-09-24] MEDS: FOSAPREPITANT DIMEGLUMINE 150 MG in SODIUM CHLORIDE 145 ML IVPB ONE (11:17)
[2024-09-24] MEDS: SODIUM CHLORIDE 250 ML IV ONE (11:20)
[2024-09-24] MEDS: DEXAMETHASONE SODIUM PHOSPHATE 10 MG in SODIUM CHLORIDE 50 ML IVPB ONE (11:53)
[2024-09-24] MEDS: PALONOSETRON HCL 0.25 MG/5 ML VIAL IVPUSH ONE (11:54)
[2024-09-24] MEDS: LORATADINE 10 MG TABLET PO ONE (11:54)
[2024-09-24] MEDS: LIDOCAINE 5% TOPICAL PATCH TP ONE (12:10)
[2024-09-24] MEDS: SODIUM CHLORIDE IVPB ONE ×2 (12:36→14:13)
[2024-09-24] MEDS: TRASTUZUMAB QYYP IVPB ONE (12:36)
[2024-09-24] MEDS: SODIUM CHLORIDE IV ONE (13:10)
[2024-09-24] MEDS: DOCETAXEL IV ONE (13:10)
[2024-09-24] MEDS: CARBOPLATIN IVPB ONE (14:13)
[2024-09-24] MEDS: PORTA CATH FLUSH 10 ML IVPUSH PRN (15:05)
[2024-09-24 17:02] VITALS: BP 119/59; PULSE 78; RESP 16; TEMP 97.7
[2024-09-24] MEDS ORDERED: LIDOCAINE PATCH REMOVAL MC ONE (22:00)
== END 2024-09-24 15:10 | disposition home or self-care (01) ==
LOC: JONCCHEMO 10:08 → J7W 10:09 → JONCCHEMO 15:10
PROVIDERS: ATTEND Internal Medicine Hematology & Oncology
PROC: 3E04305 Introduction of Other Antineoplastic into Central Vein, Percutaneous Approach (ICD-10-PCS; principal; 2024-09-24)
PROC: 3E043GC Introduction of Other Therapeutic Substance into Central Vein, Percutaneous Approach (ICD-10-PCS; 2024-09-24)
DX: Z51.11 Encounter for antineoplastic chemotherapy (principal); C50.511 Malignant neoplasm of lower-outer quadrant of right female breast; Z17.0 Estrogen receptor positive status [ER+]
CPT/HCPCS: 36415; 80053; 83735; 85025; 96366; 96367; 96413; 96417; J1453; Q5116

== ENCOUNTER 2024-09-25 15:12 | Day surgery (SDC) | payer OTHER ==
[2024-09-25] MEDS: DEXTROSE 5%-NORMAL SALINE 500 ML IV ONE (15:30)
[2024-09-25] MEDS: LORATADINE 10 MG TABLET PO ONE (15:43)
[2024-09-25] MEDS: DEXAMETHASONE SODIUM PHOSPHATE 6 MG in SODIUM CHLORIDE 50 ML IVPB ONE (15:43)
[2024-09-25] MEDS: PEGFILGRASTIM CBQV 6 MG/0.6 ML SQ ONE (17:32)
[2024-09-25] MEDS: PORTA CATH FLUSH 10 ML IVPUSH PRN (17:35)
[2024-09-25 18:23] VITALS: TEMP 98
[2024-09-25 18:25] VITALS: BP 124/71; PULSE 78; RESP 18
== END 2024-09-25 17:35 | disposition home or self-care (01) ==
LOC: J7W 15:12 → JONCCHEMO 15:12
PROVIDERS: ATTEND Internal Medicine Hematology & Oncology
PROC: 3E0437Z Introduction of Electrolytic and Water Balance Substance into Central Vein, Percutaneous Approach (ICD-10-PCS; principal; 2024-09-25)
PROC: 3E043GC Introduction of Other Therapeutic Substance into Central Vein, Percutaneous Approach (ICD-10-PCS; 2024-09-25)
PROC: 3E013GC Introduction of Other Therapeutic Substance into Subcutaneous Tissue, Percutaneous Approach (ICD-10-PCS; 2024-09-25)
DX: C50.511 Malignant neoplasm of lower-outer quadrant of right female breast (principal); Z17.0 Estrogen receptor positive status [ER+]; Z76.89 Persons encountering health services in other specified circumstances
CPT/HCPCS: 96360; 96361; 96372; 96374; Q5111

== ENCOUNTER 2024-10-17 09:58 | Day surgery (SDC) | payer OTHER ==
[~2024-10-17 09:58] MED LIST changes: +ACETAMINOPHEN 325 MG TABLET (FP) PO ONE; -CARBOPLATIN IVPB ONE; -DEXAMETHASONE SODIUM PHOSPHATE 10 MG in SODIUM CHLORIDE 50 ML IVPB ONE; -DOCETAXEL 128 MG in SODIUM CHLORIDE 250 ML IVPB ONE; -FOSAPREPITANT DIMEGLUMINE 150 MG in SODIUM CHLORIDE 145 ML IVPB ONE; +ONDANSETRON INJECTION 4 MG in SODIUM CHLORIDE 50 ML IVPB ONE; -PALONOSETRON HCL 0.25 MG/5 ML VIAL IVPUSH ONE; +TRASTUZUMAB QYYP IVPB ONE; -TRASTUZUMAB-QYYP 410 MG in SODIUM CHLORIDE 250 ML IVPB ONE
[2024-10-17 10:53] LABS: ABSOLUTE IMMATURE GRANULOCYTES 0.02 x10^3/uL (0.0-0.031); BASOPHILS # 0.04 x10^3/uL (0.01-0.08); EOSINOPHIL % 10.7 % (0.7-5.8); EOSINOPHILS # 0.59 x10^3/uL (0.04-0.36); HEMATOCRIT 29.5 % (34.1-44.9); HEMOGLOBIN 9.1 g/dL (11.2-15.7); MCHC 30.8 g/dl (32.2-35.5); MEAN CELL VOLUME 103.9 fl (79.4-94.8); MEAN PLT VOLUME 8.9 fl (9.4-12.3); MONOCYTE # 0.51 x10^3/uL (0.24-0.86); MONOCYTE % 9.2 % (4.7-12.5); PLATELET COUNT 221 x10^3/uL (182-369); RDW 17.6 % (12.4-16.4)
[2024-10-17] MEDS: SODIUM CHLORIDE 250 ML IV ONE (11:22)
[2024-10-17 11:41] LABS: ALBUMIN 3.2 g/dl (3.4-5.0); BLOOD UREA NITROGEN 12.6 mg/dL (7-18); CALCIUM 8.7 mg/dL (8.5-10.1)
[2024-10-17 11:42] LABS: MAGNESIUM 1.9 mg/dL (1.8-2.4)
[2024-10-17 11:44] LABS: CREATININE 0.8 mg/dL (0.55-1.3)
[2024-10-17 11:46] LABS: BILIRUBIN,TOTAL 0.2 mg/dL (0.2-1); TOT PROT 6.7 g/dl (6.4-8.2)
[2024-10-17] MEDS: ONDANSETRON INJECTION 4 MG in SODIUM CHLORIDE 50 ML IVPB ONE (12:24)
[2024-10-17] MEDS: ACETAMINOPHEN 325 MG TABLET (FP) PO ONE (12:24)
[2024-10-17] MEDS: TRASTUZUMAB QYYP IVPB ONE (12:47)
[2024-10-17] MEDS: SODIUM CHLORIDE IVPB ONE (12:47)
[2024-10-17 17:10] VITALS: BP 120/69; PULSE 68; RESP 20; TEMP 98.5
[2024-10-17] MEDS: PORTA CATH FLUSH 10 ML IVPUSH PRN (17:14)
== END 2024-10-17 13:40 | disposition home or self-care (01) ==
LOC: JONCCHEMO 09:58
PROVIDERS: ATTEND Internal Medicine Hematology & Oncology
DX: Z51.11 Encounter for antineoplastic chemotherapy (principal); C50.511 Malignant neoplasm of lower-outer quadrant of right female breast; Z17.0 Estrogen receptor positive status [ER+]
CPT/HCPCS: 36415; 80053; 83735; 85025; 96375; 96413; Q5116

== ENCOUNTER 2024-11-05 11:35 | Day surgery (SDC) | payer OTHER ==
[2024-11-05 12:09] LABS: ABSOLUTE IMMATURE GRANULOCYTES 0.01 x10^3/uL (0.0-0.031); BASOPHILS # 0.03 x10^3/uL (0.01-0.08); EOSINOPHIL % 8.8 % (0.7-5.8); HEMOGLOBIN 11.2 g/dL (11.2-15.7); MEAN PLT VOLUME 9.1 fl (9.4-12.3); MONOCYTE % 8.8 % (4.7-12.5); PLATELET COUNT 254 x10^3/uL (182-369); RDW 15.1 % (12.4-16.4)
[2024-11-05] MEDS: SODIUM CHLORIDE 250 ML IV ONE (12:10)
[2024-11-05 12:30] LABS: POTASSIUM 4.1 mmol/L (3.5-5.1)
[2024-11-05 12:32] LABS: CALCIUM 9.6 mg/dL (8.5-10.1)
[2024-11-05 12:33] LABS: ALBUMIN 3.5 g/dl (3.4-5.0); MAGNESIUM 1.8 mg/dL (1.8-2.4)
[2024-11-05 12:36] LABS: CREATININE 0.9 mg/dL (0.55-1.3)
[2024-11-05 12:38] LABS: BILIRUBIN,TOTAL 0.5 mg/dL (0.2-1); TOT PROT 7.2 g/dl (6.4-8.2)
[2024-11-05] MEDS: ONDANSETRON INJECTION 4 MG in SODIUM CHLORIDE 50 ML IVPB ONE (13:16)
[2024-11-05] MEDS: ACETAMINOPHEN 325 MG TABLET (FP) PO ONE (13:17)
[2024-11-05] MEDS: TRASTUZUMAB QYYP IVPB ONE (13:53)
[2024-11-05] MEDS: SODIUM CHLORIDE IVPB ONE (13:53)
[2024-11-05] MEDS: PORTA CATH FLUSH 10 ML IVPUSH PRN (14:30)
[2024-11-05 15:06] VITALS: RESP 18; TEMP 97.8
[2024-11-05 15:15] VITALS: BP 111/41; PULSE 69
== END 2024-11-05 15:00 | disposition home or self-care (01) ==
LOC: JONCCHEMO 11:35 → J7W 11:37 → JONCCHEMO 15:00
PROVIDERS: ATTEND Internal Medicine Hematology & Oncology
DX: Z51.11 Encounter for antineoplastic chemotherapy (principal); C50.919 Malignant neoplasm of unspecified site of unspecified female breast
CPT/HCPCS: 36415; 80053; 83735; 85025; 96375; 96413; Q5116

== ENCOUNTER 2024-11-26 11:45 | Day surgery (SDC) | payer OTHER ==
[2024-11-26 12:48] LABS: CHLORIDE 106 mmol/L (98-107); POTASSIUM 4.4 mmol/L (3.5-5.1); SODIUM 140 mmol/L (136-145)
[2024-11-26] MEDS: SODIUM CHLORIDE 250 ML IV ONE (12:48)
[2024-11-26 12:50] LABS: ALBUMIN 3.6 g/dl (3.4-5.0); CALCIUM 9.4 mg/dL (8.5-10.1)
[2024-11-26 12:51] LABS: ANION GAP 5 mmol/L (4-13); BLOOD UREA NITROGEN 16.6 mg/dL (7-18); CO2 29 mmol/L (21-32); GLUCOSE,RANDOM 138 mg/dL (74-106); MAGNESIUM 1.8 mg/dL (1.8-2.4)
[2024-11-26 12:54] LABS: CREATININE 1.1 mg/dL (0.55-1.3); SGOT/AST 18 U/L (15-37); SGPT/ALT 18 U/L (13-61)
[2024-11-26 12:55] LABS: BILIRUBIN,TOTAL 0.2 mg/dL (0.2-1); TOT PROT 7.2 g/dl (6.4-8.2)
[2024-11-26 12:56] LABS: ALK PHOS 104 U/L (45-117)
[2024-11-26 13:34] LABS: ABSOLUTE IMMATURE GRANULOCYTES 0.02 x10^3/uL (0.0-0.031); BASOPHILS # 0.04 x10^3/uL (0.01-0.08); EOSINOPHIL % 10.9 % (0.7-5.8); EOSINOPHILS # 0.59 x10^3/uL (0.04-0.36); HEMATOCRIT 34.4 % (34.1-44.9); MEAN CELL VOLUME 102.1 fl (79.4-94.8); MEAN PLT VOLUME 9.9 fl (9.4-12.3); MONOCYTE % 9.2 % (4.7-12.5); PLATELET COUNT 261 x10^3/uL (182-369); RDW 12.8 % (12.4-16.4)
[2024-11-26] MEDS: ACETAMINOPHEN 325 MG TABLET (FP) PO ONE (13:37)
[2024-11-26] MEDS: ONDANSETRON INJECTION 4 MG in SODIUM CHLORIDE 50 ML IVPB ONE (13:37)
[2024-11-26] MEDS: SODIUM CHLORIDE IVPB ONE (13:58)
[2024-11-26] MEDS: TRASTUZUMAB QYYP IVPB ONE (13:58)
[2024-11-26] MEDS: PORTA CATH FLUSH 10 ML IVPUSH PRN (14:40)
[2024-11-26 17:54] VITALS: RESP 20; TEMP 98.4
[2024-11-26 17:59] VITALS: BP 119/47; PULSE 63
== END 2024-11-26 14:40 | disposition home or self-care (01) ==
LOC: JONCCHEMO 11:45 → J7W 13:30 → JONCCHEMO 14:40
PROVIDERS: ATTEND Internal Medicine Hematology & Oncology
DX: Z51.11 Encounter for antineoplastic chemotherapy (principal); C50.919 Malignant neoplasm of unspecified site of unspecified female breast
CPT/HCPCS: 36415; 80053; 82378; 83735; 85025; 86300; 96375; 96413; Q5116

== ENCOUNTER 2025-04-01 11:28 | Day surgery (SDC) | payer OTHER ==
[2025-04-01 12:25] LABS: ABSOLUTE IMMATURE GRANULOCYTES 0.01 x10^3/uL (0.0-0.031); BASOPHILS # 0.05 x10^3/uL (0.01-0.08); EOSINOPHIL % 9.2 % (0.7-5.8); EOSINOPHILS # 0.41 x10^3/uL (0.04-0.36); MCHC 31.5 g/dl (32.2-35.5); MEAN CELL VOLUME 96.9 fl (79.4-94.8); MEAN PLT VOLUME 9.6 fl (9.4-12.3); MONOCYTE # 0.36 x10^3/uL (0.24-0.86); MONOCYTE % 8.0 % (4.7-12.5); RDW 15.6 % (12.4-16.4)
[2025-04-01 12:42] LABS: GLUCOSE,RANDOM 124.0 mg/dL (74-106)
[2025-04-01 12:43] LABS: TOT PROT 7.7 g/dl (6.4-8.2)
[2025-04-01] MEDS: SODIUM CHLORIDE 250 ML IV ONE (12:43)
[2025-04-01 12:44] LABS: CO2 25.0 mmol/L (21-32)
[2025-04-01 12:45] LABS: ALK PHOS 75.0 U/L (40-150)
[2025-04-01 12:46] LABS: IRON SERUM 64.0 ug/dL (50-175)
[2025-04-01 12:48] LABS: CREATININE 0.91 mg/dL (0.55-1.3); SGOT/AST 20.0 U/L (5-34); SGPT/ALT 16.0 U/L (0-55)
[2025-04-01 12:49] LABS: IRON SERUM 64.0 ug/dL (50-175)
[2025-04-01] MEDS: SODIUM CHLORIDE IVPB ONE ×2 (13:23→13:47)
[2025-04-01] MEDS: ONDANSETRON IVPB ONE (13:23)
[2025-04-01] MEDS: DIPHENHYDRAMINE IVPB ONE (13:23)
[2025-04-01] MEDS: ACETAMINOPHEN 325 MG TABLET (FP) PO PRN (13:25)
[2025-04-01] MEDS: TRASTUZUMAB QYYP IVPB ONE (13:47)
[2025-04-01 17:34] VITALS: RESP 20; TEMP 98.3
[2025-04-01] MEDS ORDERED: PORTA CATH FLUSH 10 ML IVPUSH PRN (17:36)
[2025-04-01 17:37] VITALS: BP 130/53; PULSE 68
== END 2025-04-01 14:40 | disposition home or self-care (01) ==
LOC: JONCCHEMO 11:28 → J7W 11:38 → JONCCHEMO 14:40
PROVIDERS: ATTEND Internal Medicine Hematology & Oncology
PROC: 3E04305 Introduction of Other Antineoplastic into Central Vein, Percutaneous Approach (ICD-10-PCS; principal; 2025-04-01)
PROC: 3E043GC Introduction of Other Therapeutic Substance into Central Vein, Percutaneous Approach (ICD-10-PCS; 2025-04-01)
DX: Z51.11 Encounter for antineoplastic chemotherapy (principal); C50.511 Malignant neoplasm of lower-outer quadrant of right female breast; Z17.0 Estrogen receptor positive status [ER+]
CPT/HCPCS: 36415; 80053; 82306; 82378; 82728; 83540; 83550; 83735; 85025; 86300; Q5116